=== PATIENT | female | born 1950 | race African-American/Black ===

== ENCOUNTER 2016-10-07 17:28 | Inpatient (IN) | payer MEDICARE ==
[~2016-10-07] VITALS: Ht 162.6 cm; Wt 57.1 kg
[~2016-10-07 17:28] MED LIST: ALPR0.5T3 PO; AMIT150T PO; GLUCTAB OR; LAMO100 PO; LURA40 OR; NAPR-576 PO; TERA1CAP3 PO
[2016-10-07 17:46] VITALS: BP 122/67; PULSE 112; RESP 20; TEMP 97.8; O2SAT 100
[2016-10-07] MEDS: HALOPERIDOL LACTATE 5 MG/ML AMP ONE ×2 (17:47→18:10)
[2016-10-07] MEDS: LORazepam 2 MG/ML VIAL ONE ×2 (17:48→18:03)
[2016-10-07] MEDS: diphenhydrAMINE HCL 50 MG/ML VIAL ONE ×2 (17:49→18:10)
[2016-10-07] MEDS ORDERED: METF500T PO (18:06)
[2016-10-07] MEDS ORDERED: diphenhydrAMINE HCL 50 MG/ML VIAL IV PUSH ONE (18:15)
[2016-10-07] MEDS ORDERED: HALOPERIDOL LACTATE 5 MG/ML AMP IM ONE (18:15)
[2016-10-07] MEDS ORDERED: LORazepam 2 MG/ML VIAL IV ONE (18:15)
[2016-10-07 18:41] LABS: AUTOMATED NEUTROPHIL # 3.3 TH/MM3 (1.8-7.7); BASOPHIL # 0.1 TH/MM3 (0-0.2); BASOPHIL % 0.8 % (0.0-2.0); EOSINOPHIL # 0.2 TH/MM3 (0-0.4); EOSINOPHIL % 2.5 % (0.0-4.0); HEMO FLAGS DIFF FINAL; LYMPH % 49.8 % (9.0-44.0); LYMPHOCYTE # 4.3 TH/MM3 (1.0-4.8); MEAN CELL VOLUME 85.5 FL (80.0-100.0); MEAN CORPUSCULAR HEMOGLOBIN 26.5 PG (27.0-34.0); MONO % 8.5 % (0.0-8.0); NEUT % 38.4 % (16.0-70.0); PLATELET COUNT 344 TH/MM3 (150-450); RED BLOOD COUNT 4.91 MIL/MM3 (4.00-5.30); RED CELL DISTRIBUTION WIDTH 15.5 % (11.6-17.2); WHITE BLOOD COUNT 8.6 TH/MM3 (4.0-11.0)
[2016-10-07] MEDS ORDERED: METF1000 PO (18:50)
[2016-10-07] MEDS ORDERED: TRAZ100T6 PO (18:50)
[2016-10-07 18:53] LABS: AMPHETAMINE, URINE NEG (NEG); BARBITURATES, URINE NEG (NEG); BLOOD, URINE NEG (NEG); COCAINE, URINE NEG (NEG); GLUCOSE,URINE NEG (NEG); KETONE, URINE NEG (NEG); MUCUS URINE FEW /lpf (OCC); NITRITE,URINE NEG (NEG); PH, URINE 5.5 (5.0-8.5); SQUAMOUS EPITHELIAL CELL URINE 1 /hpf (0-5); URINE COLOR YELLOW (YELLW/STRAW)
[2016-10-07] MEDS ORDERED: ALPR.5 PO (18:53)
[2016-10-07] MEDS ORDERED: AMIT150T PO (18:53)
[2016-10-07] MEDS ORDERED: DONE10TA7 PO (18:53)
[2016-10-07] MEDS ORDERED: RISP1 PO (18:53)
[2016-10-07] MEDS ORDERED: CARV3.125 PO (18:53)
[2016-10-07 18:55] LABS: COMMENT (UR) CATH-CULT NOT IND; CULTURE IF INDICATED CATH CULTURE NOT IND
[2016-10-07] MEDS ORDERED: FOLI1TAB6 PO (18:55)
[2016-10-07] MEDS ORDERED: ERGO1CAP30 PO (18:55)
--- NOTE | 2016-10-07 19:00 | PD ---
HPI Chief Complaint: Psychiatric Symptoms Time Seen by Provider: 17:57 Travel History International Travel<30 days: No Contact w/Intl Traveler<30days: No Traveled to known affect area: No History of Present Illness HPI This is a 66-year-old female with a history of seizure disorder, bipolar disorder, previous psychosis, presents here with acute psychosis. states that over last 2 days she's been extremely manic intermittently. He reports they were seen by their neurologist today who recommended that they go to her psychiatrist for management. Patient's states that she's been seen multiple times at [facility]. Previous records show that she's been admitted for acute psychosis. There is no reported ingestions of toxic substances. There is no report of injury. The states that she becomes violent and then becomes cooperative man becomes violent again. She'll be placed under Hodgson act by this physician. PFSH Past Medical History Asthma: Yes Blood Disorders: No Bipolar Disorder: Yes Cancer: No Cardiovascular Problems: Yes High Cholesterol: Yes Diabetes: Yes Patient Takes Glucophage: Yes Diminished Hearing: No Endocrine: No Gastrointestinal Disorders: Yes GERD: Yes Glaucoma: Yes Genitourinary: No Immune Disorder: No Musculoskeletal: Yes Neurologic: Yes Psychiatric: Yes (BIPOLAR ) Reproductive: No Respiratory: Yes Seizures: Yes Sickle Cell Disease: No Tetanus Vaccination: > 5 Years Influenza Vaccination: Yes ?: Not Tubal Ligation: Yes Past Surgical History Abdominal Surgery: No Cardiac Surgery: No Ear Surgery: No Endocrine Surgery: No Eye Surgery: No Genitourinary Surgery: No Gynecologic Surgery: Yes (FROM HISTORY- PATIENT UNABLE TO PROVIDE INFO) Oral Surgery: No Thoracic Surgery: No Other Surgery: Yes (TUBAL LIGATION 1984) Social History Alcohol Use: No Tobacco Use: No Substance Use: No Allergies-Medications (Allergen,Severity, Reaction): Coded Allergies: Penicillin (Verified Allergy, Intermediate, SWELLING, 10/07/16) Reported Meds & Prescriptions Reported Meds & Active Scripts Active Reported Folic Acid 1 Mg Tablet 1 Mg PO DAILY Ergocalciferol 50,000 Unit Cap 50,000 Units PO Q7D Donepezil 10 Mg Tab 10 Mg PO HS Coreg (Carvedilol) 3.125 Mg Tab 3.125 Mg PO BID Amitriptyline (Amitriptyline HCl) 150 Mg Tab 150 Mg PO HS Xanax (Alprazolam) 0.5 Mg Tab 0.5 Mg PO Q6H PRN Risperdal (Risperidone) 1 Mg Tab 1 Mg PO BID Metformin (Metformin HCl) 1,000 Mg Tab 1,000 Mg PO BIDPC With meals Review of Systems ROS Limitations: Psychotic (unable to obtain review of systems secondary to patient's psychosis.) Except as stated in HPI: all other systems reviewed are Neg Physical Exam Narrative GENERAL: Well developed well-nourished female who is acutely psychotic and aggressive towards staff. The patient was spitting at staff and required locked restraints. SKIN: Focused skin assessment warm/dry. HEAD: Atraumatic. Normocephalic. EYES: No scleral icterus. No injection or drainage. ENT: No nasal bleeding or discharge. Mucous membranes pink and moist. NECK: Trachea midline. No JVD. CARDIOVASCULAR: Tachycardic. No murmurs appreciated. RESPIRATORY: No accessory muscle use. Clear to auscultation. Breath sounds equal bilaterally. GASTROINTESTINAL: Abdomen soft, non-tender, nondistended. Hepatic and splenic margins not palpable. MUSCULOSKELETAL: No obvious deformities. No clubbing. No cyanosis. No edema. NEUROLOGICAL: Awake and psychotic. The patient was screaming and intermittently singing amazing [place].. No obvious cranial nerve deficits. Motor grossly within normal limits. Normal speech. PSYCHIATRIC: Acutely psychotic.. Data Data Last Documented VS Vital Signs Date Time Temp Pulse Resp B/P Pulse Ox O2 Delivery O2 Flow Rate FiO2 10/07/16 17:50 18 10/07/16 17:46 97.8 112 122/67 100 Orders Haloperidol Inj (Haldol Inj) (10/07/16 17:47) Lorazepam Inj (Ativan Inj) (10/07/16 17:48) Diphenhydramine Inj (Benadryl Inj) (10/07/16 17:49) Complete Blood Count With Diff (10/07/16 18:03) Comprehensive Metabolic Panel (10/07/16 18:03) Urinalysis - C+S If Indicated (10/07/16 18:03) Psych Screen (10/07/16 18:03) Haloperidol Inj (Haldol Inj) (10/07/16 18:15) Lorazepam Inj (Ativan Inj) (10/07/16 18:15) Drug Screen, Random Urine (10/07/16 18:03) Ct Brain W/O Iv Contrast(Rout) (10/07/16 18:03) Diphenhydramine Inj (Benadryl Inj) (10/07/16 18:15) Labs Laboratory Tests Test 10/07/16 10/07/16 18:11 18:30 White Blood Count 8.6 TH/MM3 Red Blood Count 4.91 MIL/MM3 Hemoglobin 13.0 GM/DL Hematocrit 42.0 % Mean Corpuscular Volume 85.5 FL Mean Corpuscular Hemoglobin 26.5 PG Mean Corpuscular Hemoglobin 31.0 % Concent Red Cell Distribution Width 15.5 % Platelet Count 344 TH/MM3 Mean Platelet Volume 8.6 FL Neutrophils (%) (Auto) 38.4 % Lymphocytes (%) (Auto) 49.8 % Monocytes (%) (Auto) 8.5 % Eosinophils (%) (Auto) 2.5 % Basophils (%) (Auto) 0.8 % Neutrophils # (Auto) 3.3 TH/MM3 Lymphocytes # (Auto) 4.3 TH/MM3 Monocytes # (Auto) 0.7 TH/MM3 Eosinophils # (Auto) 0.2 TH/MM3 Basophils # (Auto) 0.1 TH/MM3 CBC Comment DIFF FINAL Differential Comment Urine Color YELLOW Urine Turbidity CLEAR Urine pH 5.5 Urine Specific [place] 1.013 Urine Protein NEG mg/dL Urine Glucose (UA) NEG mg/dL Urine Ketones NEG mg/dL Urine Occult Blood NEG Urine Nitrite NEG Urine Bilirubin NEG Urine Urobilinogen LESS THAN 2.0 MG/DL Urine Leukocyte Esterase TRACE Urine RBC LESS THAN 1 /hpf Urine WBC LESS THAN 1 /hpf Urine Squamous Epithelial 1 /hpf Cells Urine Mucus FEW /lpf Microscopic Urinalysis Comment CATH-CULT NOT IND MDM Medical Decision Making Medical Screen Exam Complete: Yes Emergency Medical Condition: Yes Differential Diagnosis Acute manic episode versus psychosis NOS versus substance induced mood disorder versus metabolic derangement. Narrative Course 66-year-old female who presents acutely psychotic. The patient has a history of bipolar disorder. She's been admitted previously for psychosis. CT scan is pending at this time. Metabolic work up is pending at this time. She'll be placed on a Hodgson act by this physician. If all is within normal limits, she' ll be cleared for psychiatric admission. She'll be signed out to Dr. Smith Sanchez cool follow up on her labs and CT and if appropriate clear her for psychiatry. Diagnosis Primary Impression: Acute psychosis Additional Impressions: History of bipolar disorder History of seizure disorder Julius Guerrero MD Oct 07, 2016 19:00
[2016-10-07 19:01] VITALS: BP 99/56; PULSE 82; RESP 16; O2SAT 95
[2016-10-07 19:03] LABS: ALKALINE PHOSPHATASE 111 U/L (45-117); TOTAL BILIRUBIN ADULT 0.4 MG/DL (0.2-1.0)
[2016-10-07 19:05] LABS: ALT (GPT) 28 U/L (10-53); ANION GAP 12 MEQ/L (5-15); AST (GOT) 30 U/L (15-37); BLOOD UREA NITROGEN 6 MG/DL (7-18); CHLORIDE 105 MEQ/L (98-107); GLOMERULAR FILTRATION RATE 64 ML/MIN (>89); POTASSIUM 4.4 MEQ/L (3.5-5.1); SODIUM (NA) 141 MEQ/L (136-145)
--- NOTE | 2016-10-07 19:23 | RADRPT ---
EXAM DATE/TIME: 10/07/2016 18:45 [place] COMPARISON: No previous studies available for comparison. INDICATIONS : Altered mental status. RADIATION DOSE: 56.80 CTDIvol (mGy) MEDICAL HISTORY : Seizures. Cardiovascular disease SURGICAL HISTORY : Tubal ligation. ENCOUNTER: Initial ACUITY: 1 day PAIN SCALE: 0/10 LOCATION: cranial TECHNIQUE: Multiple contiguous axial images were obtained of the head. Using automated exposure control and adj ustment of the mA and/or kV according to patient size, radiation dose was kept as low as reasonably a chievable to obtain optimal diagnostic quality images. FINDINGS: CEREBRUM: The ventricles are normal. No evidence of midline shift, mass lesion, hemorrhage or acute infarction . No extra-axial fluid collections are seen. POSTERIOR FOSSA: The cerebellum and brainstem demonstrate no acute finding. The 4th ventricle is midline. The cerebe llopontine angle is unremarkable. EXTRACRANIAL: Visualized sinuses are clear. SKULL: The calvaria is intact. No evidence of skull fracture. CONCLUSION: No acute intracranial abnormality is identified. Ric Figueredo MD on October 07, 2016 at 19:14 Board Certified Radiologist. This report was verified electronically.
--- NOTE | 2016-10-07 20:08 | PD ---
Data Data Last Documented VS Vital Signs Date Time Temp Pulse Resp B/P Pulse Ox O2 Delivery O2 Flow Rate FiO2 10/07/16 19:01 82 16 99/56 95 Room Air 10/07/16 17:46 97.8 Orders Haloperidol Inj (Haldol Inj) (10/07/16 17:47) Lorazepam Inj (Ativan Inj) (10/07/16 17:48) Diphenhydramine Inj (Benadryl Inj) (10/07/16 17:49) Complete Blood Count With Diff (10/07/16 18:03) Comprehensive Metabolic Panel (10/07/16 18:03) Urinalysis - C+S If Indicated (10/07/16 18:03) Psych Screen (10/07/16 18:03) Haloperidol Inj (Haldol Inj) (10/07/16 18:15) Lorazepam Inj (Ativan Inj) (10/07/16 18:15) Drug Screen, Random Urine (10/07/16 18:03) Ct Brain W/O Iv Contrast(Rout) (10/07/16 18:03) Diphenhydramine Inj (Benadryl Inj) (10/07/16 18:15) Cath For Specimen (10/07/16 18:54) Restraints Violent (10/07/16 18:54) Labs Laboratory Tests Test 10/07/16 10/07/16 18:11 18:30 White Blood Count 8.6 TH/MM3 Red Blood Count 4.91 MIL/MM3 Hemoglobin 13.0 GM/DL Hematocrit 42.0 % Mean Corpuscular Volume 85.5 FL Mean Corpuscular Hemoglobin 26.5 PG Mean Corpuscular Hemoglobin 31.0 % Concent Red Cell Distribution Width 15.5 % Platelet Count 344 TH/MM3 Mean Platelet Volume 8.6 FL Neutrophils (%) (Auto) 38.4 % Lymphocytes (%) (Auto) 49.8 % Monocytes (%) (Auto) 8.5 % Eosinophils (%) (Auto) 2.5 % Basophils (%) (Auto) 0.8 % Neutrophils # (Auto) 3.3 TH/MM3 Lymphocytes # (Auto) 4.3 TH/MM3 Monocytes # (Auto) 0.7 TH/MM3 Eosinophils # (Auto) 0.2 TH/MM3 Basophils # (Auto) 0.1 TH/MM3 CBC Comment DIFF FINAL Differential Comment Sodium Level 141 MEQ/L Potassium Level 4.4 MEQ/L Chloride Level 105 MEQ/L Carbon Dioxide Level 24.0 MEQ/L Anion Gap 12 MEQ/L Blood Urea Nitrogen 6 MG/DL Creatinine 1.05 MG/DL Estimat Glomerular Filtration 64 ML/MIN Rate Random Glucose 145 MG/DL Calcium Level 9.4 MG/DL Total Bilirubin 0.4 MG/DL Aspartate Amino Transf 30 U/L (AST/SGOT) Alanine Aminotransferase 28 U/L (ALT/SGPT) Alkaline Phosphatase 111 U/L Total Protein 8.7 GM/DL Albumin 4.2 GM/DL Urine Color YELLOW Urine Turbidity CLEAR Urine pH 5.5 Urine Specific [place] 1.013 Urine Protein NEG mg/dL Urine Glucose (UA) NEG mg/dL Urine Ketones NEG mg/dL Urine Occult Blood NEG Urine Nitrite NEG Urine Bilirubin NEG Urine Urobilinogen LESS THAN 2.0 MG/DL Urine Leukocyte Esterase TRACE Urine RBC LESS THAN 1 /hpf Urine WBC LESS THAN 1 /hpf Urine Squamous Epithelial 1 /hpf Cells Urine Mucus FEW /lpf Microscopic Urinalysis Comment CATH-CULT NOT IND Urine Opiates Screen NEG Urine Barbiturates Screen NEG Urine Amphetamines Screen NEG Urine Benzodiazepines Screen POS Urine Cocaine Screen NEG Urine Cannabinoids Screen NEG MDM Supervised Visit with [facility]: No Narrative Course This patient is checked out to me by Dr. Guerrero at 7 PM. Patient came in acutely psychotic but with some time in medication is calm down considerably and is now resting comfortable and cooperatively in the bed She is out of restraints I reviewed the entirety of her workup which essentially is negative. She has normal labs and a negative brain CT She is as medically stable as can be made and as she is under the Hodgson act disposition will be per psychiatry after screening Diagnosis Primary Impression: Acute psychosis Additional Impressions: History of bipolar disorder History of seizure disorder Smith Núñez MD Oct 07, 2016 20:08
[2016-10-07 20:44] VITALS: BP 138/74; PULSE 80; RESP 18; O2SAT 91
[2016-10-07 22:00] VITALS: BP 112/53; PULSE 84; RESP 19; O2SAT 99
[2016-10-08 02:00] VITALS: BP 146/68; PULSE 93; RESP 19; O2SAT 98
[2016-10-08 06:20] VITALS: BP 165/74; PULSE 85; RESP 18; O2SAT 99
[2016-10-08] MEDS ORDERED: IBUPROFEN 400 MG TAB PO ONE (07:30)
[2016-10-08 11:18] VITALS: BP 130/61; PULSE 78; RESP 16; O2SAT 99
[2016-10-08] MEDS ORDERED: IBUPROFEN 600 MG TAB PO ONE (14:30)
[2016-10-08] MEDS ORDERED: LORazepam 2 MG/ML VIAL ONE (17:48)
[2016-10-08] MEDS ORDERED: LORazepam 1 MG TAB PO PRN (18:00)
[2016-10-08] MEDS ORDERED: diphenhydrAMINE HCL 50 MG/ML VIAL - HS PRN IM (18:00)
[2016-10-08] MEDS ORDERED: BENZTROPINE MESYLATE 2 MG/2 ML VIAL IM PRN (18:00)
[2016-10-08] MEDS: CARVEDILOL 3.125 MG TAB PO SCH (18:00)
[2016-10-08] MEDS ORDERED: ACETAMINOPHEN 325 MG TAB PO PRN (18:00)
[2016-10-08] MEDS ORDERED: diphenhydrAMINE HCL 50 MG CAP - HS PRN PO (18:00)
[2016-10-08] MEDS ORDERED: ALUMINUM/MAGNESIUM/SIMETH 30 ML CUP PO PRN (18:00)
[2016-10-08] MEDS ORDERED: LORazepam 2 MG/ML VIAL IM PRN (18:00)
[2016-10-08] MEDS ORDERED: BENZTROPINE MESYLATE 1 MG TAB PO PRN (18:00)
[2016-10-08] MEDS ORDERED: ALPRAZolam 0.5 MG TAB PO PRN (18:00)
[2016-10-08] MEDS ORDERED: MAGNESIUM HYDROXIDE SUSP 30 ML CUP PO PRN (18:00)
[2016-10-08] MEDS ORDERED: PILL SPLITTER OTHER PRN (18:15)
[2016-10-08] MEDS ORDERED: diphenhydrAMINE HCL 50 MG/ML VIAL IM ONE (19:15)
[2016-10-08] MEDS ORDERED: HALOPERIDOL LACTATE 5 MG/ML AMP IM ONE (19:15)
[2016-10-08 20:46] VITALS: BP 180/84; PULSE 80; RESP 18
[2016-10-08] MEDS: QUEtiapine FUMARATE 100 MG TAB PO SCH (21:00)
[2016-10-08] MEDS ORDERED: DONEPEZIL HCL 5 MG TAB PO SCH (21:00)
[2016-10-08] MEDS: risperiDONE 1 MG TAB PO SCH (21:00)
[2016-10-08] MEDS: metFORMIN HCL 500 MG TAB PO SCH (21:00)
[2016-10-08] MEDS ORDERED: hydrALAZINE HCL 25 MG TAB PO ONE (21:30)
[2016-10-08 22:00] VITALS: BP 116/88; PULSE 116; RESP 18; O2SAT 99
[2016-10-09 02:50] VITALS: BP 102/58; PULSE 118; RESP 16; TEMP 97.6; O2SAT 98
[2016-10-09 05:30] VITALS: BP_SYST 52; PULSE 99; RESP 16; TEMP 96.9; O2SAT 98
[2016-10-09] MEDS: CARVEDILOL 3.125 MG TAB PO SCH ×2 (06:00→06:26)
[2016-10-09] MEDS: risperiDONE 1 MG TAB PO SCH (09:00)
[2016-10-09] MEDS ORDERED: FOLIC ACID 1 MG TAB PO SCH (09:00)
[2016-10-09] MEDS: QUEtiapine FUMARATE 100 MG TAB PO SCH (09:00)
[2016-10-09] MEDS: metFORMIN HCL 500 MG TAB PO SCH (09:10)
--- NOTE | 2016-10-09 13:18 | PD.PN.STU ---
Subjective Remarks Patient is a 66 year old AA female on disability living with her and adult daughter with a history of bipolar disorder, seizures, and psychosis who presents to the clinic from the ED. Patient arrived at the ED last night with acute psychosis lasting for several hours prior to arrival. patient reports difficulty with organizing her medications which has lead to the inability to take them consistently and correctly, causing this psychotic event. She reports these events occur once every 2-3 months. When on medication, patient reports being stable and functional. She does not remember exactly what medications she is on. Patient denies any current psychotic symptoms, but does report feeling "groggy" and tired. Patient denies any suicidal or homicidal ideation or attempts, past or present Patient reports additional medical history of hypertension and diabetes. Patient denies any alcohol, tobacco, or recreational drug use. Objective Vitals Vital Signs Date Time Temp Pulse Resp B/P Pulse Ox O2 Delivery O2 Flow Rate FiO2 10/09/16 05:30 96.9 99 16 52/ 98 10/09/16 02:50 97.6 118 16 102/58 98 10/08/16 22:00 116 18 116/88 99 Room Air 10/08/16 20:46 80 18 180/84 Room Air Result Diagram: 10/07/16 1811 10/07/16 1811 Objective Remarks Patient is a well nourished well developed pleasant female who appears her stated age. patient is calm and cooperative. Speech is of normal rate and contact. Affect is of normal range and intensity. Thought process is clear, linear, and goal-orientated. Thought content, cognition, insight, and judgement are appropiate. A/P Assessment and Plan 1) Brief Psychotic Disorder 2) Bipolar disorder with psychosis - chronic Patient is a 66 year old female with history of bipolar disorder presenting today with brief psychotic disorder. She currently denies any symptoms of psychosis and expresses understanding of the importance of her medication's effect on her psychosis. She expresses desire to seek help in organizing her many anti-psychotic medications. She lives in a stable home with supportive family and has been living with this disease for over 20 years. I believe patient is in a stable enough state for discharge on conditions that she immediately seeks outpatient help in organizing her medications. Chet Conklin M3 Oct 09, 2016 13:18
--- NOTE | 2016-10-09 14:06 | HHI.HP ---
Provisional Diagnosis Admission Date Oct 08, 2016 at 16:48 [place] I. Brief psychotic disorder F 23, history of bipolar disorder Z 86.59 Certification of Person's Competence To Provide Express and Informed Consent I have personally examined Denise Hurley , a person being served at [facility] on, Oct 09, 2016 13:56. Express and informed consent means consent voluntarily given in writing, by a competent person, after sufficient explanation and disclosure of the subject matter involved to enable the person to make a knowing and willful decision without any element of force, fraud, deceit, duress, or other form of constraint or coercion. This person is 18 years of age or older, is not now known to be incompetent to consent to treatment with a guardian advocate, and does not have a health care surrogate or proxy currently making medical treatment decisions. I have found this person to be one of the following: [xx] Competent to provide express and informed consent, as defined above, for voluntary admission to this facility and is competent to provide express and informed consent for treatment. He/she has the consistent capacity to make well reasoned, willful, and knowing decisions concerning his or her medical or mental health treatment. The person fully and consistently understands the purpose of the admission for examination/placement and is fully capable of personally exercising all rights assured [place] Incompetent to provide express and informed consent to voluntary admission, and this is incompetent to provide express and informed consent to treatment. The person must be transferred to involuntary status and a petition for a guardian advocate filed with the Circuit Court. [] Refusing to provide express and informed consent to voluntary admission but is competent to provide express and informed consent for treatment. The person must be discharged or transferred to involuntary status. Form shall be completed within 24 hours of a person's arrival at the receiving facility and filed in the clinical record of each person: 1. Admitted on a voluntary basis 2. Permitted to provide express and informed consent to his/her own treatment 3. Allowed to transfer from involuntary to voluntary status 4. Prior to permitting a person to consent to his or her own treatment after having been previously found incompetent to consent to treatment. History of Present Illness Capacity: Has Capacity HPI Patient is a 66-year-old Af[place]er female comes here under Hodgson act signed by Dr. Julius Guerrero [facility] dated 10/07/16 at 1900 hrs. that documented reviewed and agreed with essentially stating actively psychotic with aggressive behavior to family and staff. Patient seen screened in ED urine toxicology positive for benzodiazepines which is being prescribed. It appears patient has a long history of mental health contact and various medications. At the present time she states she is seeing 2 different clinicians did not take nurse practitioner at [facility] and Dr. Brian cosme local psychiatrist. This is led to some confusion with her and daughter as to the appropriate medications. Leading to the patient showing the psychotic break she acknowledges auditory hallucinations and vague visual hallucinations. Stating she had seen faces on the TV being distorted. She did receive Haldol Ativan and Benadryl in the ED. At the present time patient sitting quietly in her room medical student Guicho and nurse Lizz present throughout session patient calm cooperative alert and oriented. Now denying voices or visions denying suicidality homicidality. Does acknowledge some multiple year history of issues with multiple prior psychiatric hospitalizations. She denies any alcohol or drug use with this. We did discuss the need to live up relationship with one prescribing psychiatrist. To prevent the type of confusion perhaps duplication of medications in any event at the present time patient is calm cooperative willing to follow up with one clinician. It appears she would choose Dr. Brian cosme. I will write 1 week medications that I recommend to bridge this transition including Respinol 1 mg twice a day Xanax 0.5 at at bedtime and Elavil 75 mg at at bedtime with no refills patient is agreeable to this. We will then discharge patient to her family for follow-up within [address] cosme Review of Systems Except as stated in HPI: all other systems reviewed are Neg Past Psych History Psychological trauma history Denies Violence risk - others (6 mos) Low Violence risk - self (6 mos) Low Substance Abuse History Drugs/Alcohol past 12 months Denies Past Family Social History Coded Allergies: Penicillin (Verified Allergy, Intermediate, SWELLING, 10/07/16) Past Medical History Patient medically cleared ED Reported Medications Folic Acid 1 Mg Tablet1 Mg PO DAILY 10/07/16 Ergocalciferol 50,000 Unit Cap50,000 Units PO Q7D #30 CAP Ref 0 10/07/16 Donepezil 10 Mg Tab10 Mg PO HS #30 TAB Ref 0 10/07/16 Carvedilol (Coreg)3.125 Mg Tab3.125 Mg PO BID #60 TAB Ref 0 10/07/16 Amitriptyline 150 Mg [id number] Mg PO HS #30 TAB Ref 0 10/07/16 Alprazolam (Xanax)0.5 Mg Tab0.5 Mg PO Q6H PRN (ANXIETY) Ref 0 10/07/16 Risperidone (Risperdal)1 Mg Tab1 Mg PO BID #30 TAB Ref 0 10/07/16 Metformin 1,000 Mg Tab1,000 Mg PO BIDPC #60 TAB Ref 0 With meals 10/07/16 Discontinued Reported Medications Metformin 500 Mg [id number] Mg PO BIDPC #60 TAB Ref 0 With meals 10/07/16 Current Medications Medications (Trade) Dose Ordered Sig/Tim Route Start Time Stop Time Status Last Admin (Glucophage) 1,000 mg BID PO 10/08/16 21:00 10/09/16 09:10 (risperDAL) 1 mg BID PO 10/08/16 21:00 10/08/16 21:00 (Xanax) 0.5 mg Q6H PRN PO 10/08/16 18:00 (Coreg) 3.125 mg Q12H PO 10/08/16 18:00 10/08/16 18:00 (Aricept) 10 mg HS PO 10/08/16 21:00 10/08/16 21:00 (Folate) 1 mg DAILY PO 10/09/16 09:00 10/09/16 09:10 (Ativan) 1 mg Q6H PRN PO 10/08/16 18:00 (Ativan Inj) 1 mg Q6H PRN IM 10/08/16 18:00 10/09/16 00:11 (Cogentin) 1 mg Q12H PRN PO 10/08/16 18:00 (Cogentin Inj) 1 mg Q12H PRN IM 10/08/16 18:00 (Benadryl) 50 mg HS PRN PO 10/08/16 18:00 (Benadryl Inj) 50 mg HS PRN IM 10/08/16 18:00 (Tylenol) 650 mg Q4H PRN PO 10/08/16 18:00 (Milk Of Magnesia Liq) 30 ml DAILY PRN PO 6/22/17 18:00 (Mag-Al Plus Susp Liq) 30 ml Q6H PRN PO 10/08/16 18:00 (SEROquel) 150 mg BID PO 10/08/16 21:00 10/08/16 21:00 (Pill Splitter) 1 ea UNSCH PRN OTHER 10/08/16 18:15 Family History Denies Social History Patient lives with and adult daughter who is moved back and help care for Patient's Strengths (min. 2) Patient verbal irritable [facility] has supportive family Physical Exam Patient seen screened in ED exam reviewed and agreed with patient sitting quietly in her room no apparent distress, there is no respiratory distress, no abdominal discomfort, patient will 4 extremities without difficulty no abnormal motor movements noted Vital Signs Vital Signs Date Time Temp Pulse Resp B/P Pulse Ox O2 Delivery O2 Flow Rate FiO2 10/09/16 05:30 96.9 99 16 52/ 98 10/08/16 22:00 Room Air Mental Status Examination Alert oriented female calm cooperative with good eye contact clean and neat Appearance Clean neatly Speech: Unremarkable Orientation: x3 Memory: Unremarkable Thought Process: Logical, Linear Thought Content: Bizarre thinking (mildly) Language Fair Fund of Knowledge Fair Hallucination Type: Auditory, Visual (vague) Attention and Concentration: Other (fair) Suicidal Ideation: No (denies) Previous Suicide Attempts: No Homicidal Ideation: No (denies) Insight: Poor Judgment: Poor Affect: Other (good range of motion intensity) Mood: Euthymic Motor Activity: Normal gait Assessment & Plan Problem List: (1) Acute psychosis ICD Code: F23 (2) History of bipolar disorder ICD Code: Z86.59 Assessment & Plan Estimated LOS: days consistent patient does not meet Hodgson criteria will lift Hodgson act patient to be discharged herself with a one-week supply of medication mentioned above follow-up within [address] Brian cosme Discharge Planning See above Request HC Surrog/Guard Advoc?: No Ric Anna MD Oct 09, 2016 14:06
[2016-10-09] MEDS ORDERED: RISP1 PO (14:11)
[2016-10-09] MEDS ORDERED: ALPR.5 PO (14:11)
[2016-10-09] MEDS ORDERED: AMIT75TA2 PO (14:11)
--- NOTE | 2016-10-09 14:17 | HHI.DS ---
Psychiatry Discharge Summary Inpatient Psychiatric care?: Yes Advance Directive: No Reason Not Provided: Due to Patient Condition Mental Health AdvanceDirective: No Health Care Proxy: No Admission Admission Date Oct 08, 2016 at 16:48 Admission Diagnosis: (1) Acute psychosis ICD Code: F23 (2) History of bipolar disorder ICD Code: Z86.59 Brief History Patient is a 66-year-old Afro-Malagasy female comes here under Hodgson act signed by Dr. Julius Guerrero [employer] dated 10/07/16 at 1900 hrs. that documented reviewed and agreed with essentially stating actively psychotic with aggressive behavior to family and staff. Patient seen screened in ED urine toxicology positive for benzodiazepines which is being prescribed. It appears patient has a long history of mental health contact and various medications. At the present time she states she is seeing 2 different clinicians did not take nurse practitioner at [facility] and Dr. Brian cosme local psychiatrist. This is led to some confusion with her and daughter as to the appropriate medications. Leading to the patient showing the psychotic break she acknowledges auditory hallucinations and vague visual hallucinations. Stating she had seen faces on the TV being distorted. She did receive Haldol Ativan and Benadryl in the ED. At the present time patient sitting quietly in her room medical student Guicho and nurse Lizz present throughout session patient calm cooperative alert and oriented. Now denying voices or visions denying suicidality homicidality. Does acknowledge some multiple year history of issues with multiple prior psychiatric hospitalizations. She denies any alcohol or drug use with this. We did discuss the need to live up relationship with one prescribing psychiatrist. To prevent the type of confusion perhaps duplication of medications in any event at the present time patient is calm cooperative willing to follow up with one clinician. It appears she would choose Dr. Brian cosme. I will write 1 week medications that I recommend to bridge this transition including Respinol 1 mg twice a day Xanax 0.5 at at bedtime and Elavil 75 mg at at bedtime with no refills patient is agreeable to this. We will then discharge patient to her family for follow-up within [address] cosme Tobacco Use In Past 30 Days: No Tobacco Past 30 Days Alcohol Use: Monthly or Less Hospital Course Please see above note dictated under brief history. Patient does not meet Hodgson criteria will lift Hodgson act. Patient discharged today to family with Rx as mentioned above. To follow up with Dr. Brian cosme within 1 week. Patient continues to denies suicidality homicidality voices or visions is little oriented 4 cognitively intact Results Blood Pressure 52 / 58 Vital Signs Date Time Temp Pulse Resp B/P Pulse Ox O2 Delivery O2 Flow Rate FiO2 10/09/16 05:30 96.9 99 16 52/ 98 10/08/16 22:00 Room Air Laboratory Tests Test 10/07/16 10/07/16 18:11 18:30 Mean Corpuscular Hemoglobin 26.5 PG (27.0-34.0) Mean Corpuscular Hemoglobin 31.0 % Concent (32.0-36.0) Lymphocytes (%) (Auto) 49.8 % (9.0-44.0) Monocytes (%) (Auto) 8.5 % (0.0-8.0) Blood Urea Nitrogen 6 MG/DL (7-18) Creatinine 1.05 MG/DL (0.50-1.00) Estimat Glomerular Filtration 64 ML/MIN (>89) Rate Random Glucose 145 MG/DL (74-106) Total Protein 8.7 GM/DL (6.4-8.2) Urine Leukocyte Esterase TRACE (NEG) Urine Mucus FEW /lpf (OCC) Urine Benzodiazepines Screen POS (NEG) Summary of Procedures None done Imaging Last Impressions Head CT 10/07/16 180 Signed Impressions: Service Date/Time: Friday, October 07, 2016 18:45 - CONCLUSION: No acute intracranial abnormality is identified. Ric Figueredo MD Pending results at discharge: No Medications # of Antipsychotic meds at D/C: 1 Approp Antipsych med options 1 - Minimum of three failed multiple trials of monotherapy. 2 - Documented plan to taper to monotherapy due to previous use of multiple meds OR cross-taper in progress at D/C. 3 - Documentation of augmentation of Clozapine. 4 - Justification other than those listed in allowable values 1-3, document here : Discharge Discharge Date: Oct 09, 2016 Discharge Diagnosis: (1) Acute psychosis Diagnosis: Principal ICD Code: F23 (2) History of bipolar disorder Diagnosis: Secondary ICD Code: Z86.59 Mental Status Exam at Disch Alert oriented female calm cooperative, she is normal active, mood is euthymic good range intensity of her affect. Speech rate and rhythm within a normal limits, no formal thought disorders, no auditory or visual hallucinations no delusions noted insight and judgment is fair cognition grossly intact Pt Condition on Discharge: Stable Discharge Disposition: Discharge Home Discharge Instructions Diet Instructions: As Tolerated, No Restrictions Activities you can perform: Regular-No Restrictions Scheduled Appointment: Dr. Brian cosme Discharge Time > 30 minutes Discharge/Advance Care Plan Health Problems: (1) Acute psychosis (2) History of bipolar disorder Goals to promote your health * To prevent worsening of your condition and complications * To maintain your health at the optimal level Directions to meet your goals Take your medications as prescribed Follow your dietary instruction Follow activity as directed Keep your appointments as scheduled Take your immunizations and boosters as scheduled If your symptoms worsen call your PCP, if no PCP go to Urgent Care Center or Emergency Room For 09/11 questions related to your inpatient stay or results of tests pending at discharge, please contact Dr. Ric Anna at Smoking is Dangerous to Your Health. Avoid second hand smoking Ric Anna MD Oct 09, 2016 14:17
[2016-10-09] MEDS ORDERED: ACETAMINOPHEN 325 MG TAB PO PRN (15:00)
== END 2016-10-09 15:30 | disposition home or self-care (01) | DRG 885 ==
LOC: NEPC 17:28 → NEDA 10-08 16:48 → H260 10-09 01:50
PROVIDERS: ADMIT Psychiatry & Neurology Psychiatry; ATTEND Psychiatry & Neurology Psychiatry
DX: F23 Brief psychotic disorder (principal); E11.9 Type 2 diabetes mellitus without complications; I10 Essential (primary) hypertension; H40.9 Unspecified glaucoma; J45.909 Unspecified asthma, uncomplicated; Z88.0 Allergy status to penicillin; K21.9 Gastro-esophageal reflux disease without esophagitis; Z79.84 Long term (current) use of oral hypoglycemic drugs; E78.00 Pure hypercholesterolemia, unspecified; Z86.59 Personal history of other mental and behavioral disorders
CPT/HCPCS: 70450; 80053; 80307; 81001; 85025; 96372; 96374; 96375; J1200; J1630; J2060; P9612

== ENCOUNTER 2017-07-26 10:41 | Inpatient (IN) | payer MEDICARE ==
[2017-07-26] VITALS (8 sets, daily range): BP systolic 114–168; BP diastolic 60–130; PULSE 82–145; RESP 16–20; TEMP 98–100.9; O2SAT 98–100
[~2017-07-26] VITALS: Ht 167.6 cm; Wt 69.4 kg
[~2017-07-26 10:41] MED LIST changes: +ALPR.5 PO; -ALPR0.5T3 PO; +AMIT75TA2 PO; +CARV3.125 PO; +DONE10TA7 PO; +FOLI1TAB6 PO; -GLUCTAB OR; -LAMO100 PO; -LURA40 OR; +METF1000 PO; -NAPR-576 PO; +RISP1 PO; -TERA1CAP3 PO; +VITA500012 PO
[2017-07-26] MEDS ORDERED: SODIUM CHLOR 0.9% 1000 ML INJ 1,000 ML IV SCH ×2 (11:04→12:28)
--- NOTE | 2017-07-26 11:12 | PD ---
HPI Chief Complaint: Altered Mental Status Time Seen by Provider: 11:00 Travel History International Travel<30 days: No Contact w/Intl Traveler<30days: No Traveled to known affect area: No History of Present Illness HPI This is a 67-year-old female who, per chart review, has a history of bipolar disorder diabetes, presents via EMS reportedly for altered mental status. Baseline mental status is unknown. Duration of acute symptoms is unknown. The patient is currently awake and alert but agitated and combative, requiring the use of chemical and physical restraints. At one point she asked where her daughter was. Otherwise she has been nonverbal during initial evaluation. The nurse was told by paramedics that at some point recently she had her Risperdal dosage changed and she has been incontinent of urine for an unknown amount of time.. No other additional information is available at this time. Per chart review she was hospitalized in September 2016 for brief psychotic disorder. PFSH Past Medical History Arthritis: No Asthma: Yes Blood Disorders: No Bipolar Disorder: Yes Cancer: No Cardiovascular Problems: Yes High Cholesterol: Yes Diabetes: Yes Diminished Hearing: No Endocrine: No Gastrointestinal Disorders: Yes GERD: Yes Glaucoma: Yes Genitourinary: No Immune Disorder: No Musculoskeletal: Yes Neurologic: Yes Psychiatric: Yes (BIPOLAR ) Reproductive: No Respiratory: Yes Seizures: Yes Sickle Cell Disease: No Tubal Ligation: Yes Past Surgical History Abdominal Surgery: No Cardiac Surgery: No Ear Surgery: No Endocrine Surgery: No Eye Surgery: No Genitourinary Surgery: No Gynecologic Surgery: Yes (FROM HISTORY- PATIENT UNABLE TO PROVIDE INFO) Oral Surgery: No Thoracic Surgery: No Other Surgery: Yes (TUBAL LIGATION 1984) Social History Alcohol Use: No Tobacco Use: No Substance Use: No Allergies-Medications (Allergen,Severity, Reaction): Coded Allergies: penicillin G (Unverified Allergy, Intermediate, SWELLING, 07/26/17) Reported Meds & Prescriptions Reported Meds & Active Scripts Active Reported Naproxen 500 Mg Tab 500 Mg PO BID PRN Atorvastatin (Atorvastatin Calcium) 80 Mg Tab 80 Mg PO HS Amitriptyline (Amitriptyline HCl) 100 Mg Tab 100 Mg PO HS Xanax (Alprazolam) 1 Mg Tab 1 Mg PO DAILY PRN Folic Acid 1 Mg Tablet 1 Mg PO DAILY Ergocalciferol 50,000 Unit Cap 50,000 Units PO Q7D Donepezil 10 Mg Tab 10 Mg PO HS Coreg (Carvedilol) 3.125 Mg Tab 3.125 Mg PO BID Risperdal (Risperidone) 1 Mg Tab 1 Mg PO BID Metformin (Metformin HCl) 1,000 Mg Tab 1,000 Mg PO BIDPC With meals Review of Systems ROS Limitations: Altered Mental Status Except as stated in HPI: all other systems reviewed are Neg Physical Exam Exam Limitations: Altered Mental Status Narrative GENERAL: Well-developed well-nourished female who is awake but unable to follow commands or answer questions in regards to history of present illness. She is tachycardic. SKIN: Warm and dry. HEAD: Atraumatic. Normocephalic. EYES: Pupils equal and round. No scleral icterus. No injection or drainage. ENT: No nasal bleeding or discharge. Mucous membranes pink and moist. NECK: Trachea midline. No JVD. CARDIOVASCULAR: Regular rate and rhythm. No murmur appreciated. RESPIRATORY: No accessory muscle use. Clear to auscultation. Breath sounds equal bilaterally. GASTROINTESTINAL: Abdomen soft, non-tender, nondistended. Hepatic and splenic margins not palpable. MUSCULOSKELETAL: No obvious deformities. No clubbing. No cyanosis. No edema. NEUROLOGICAL: Awake and alert. No obvious cranial nerve deficits. Motor grossly within normal limits. Data Data Last Documented VS Vital Signs Date Time Temp Pulse Resp B/P (MAP) Pulse Ox O2 Delivery O2 Flow Rate FiO2 07/26/17 12:46 105 20 131/74 (93) 99 Room Air 07/26/17 11:00 100.9 Orders Orders Electrocardiogram (07/26/17 11:04) Ammonia (07/26/17 11:04) Complete Blood Count With Diff (07/26/17 11:04) Comprehensive Metabolic Panel (07/26/17 11:04) Creatine Kinase (Cpk) (07/26/17 11:04) Thyroid Stimulating Hormone (07/26/17 11:04) Urinalysis - C+S If Indicated (07/26/17 11:04) Lactic Acid Sepsis Protocol (07/26/17 11:04) Blood Culture (07/26/17 11:04) Chest, Single Ap (07/26/17 11:04) Ct Brain W/O Iv Contrast(Rout) (07/26/17 11:04) Blood Glucose (07/26/17 11:04) Ecg Monitoring (07/26/17 11:04) Iv Access Insert/Monitor (07/26/17 11:04) Oximetry (07/26/17 11:04) Sodium Chloride 0.9% Flush (Ns Flush) (07/26/17 11:15) Sodium Chlor 0.9% 1000 Ml Inj (Ns 1000 M (07/26/17 11:04) Drug Screen, Random Urine (07/26/17 11:04) Alcohol (Ethanol) (07/26/17 11:04) Cath For Specimen (07/26/17 11:05) Lorazepam Inj (Ativan Inj) (07/26/17 11:15) Restraints Non-Violent EMILIANO.Q3H (07/26/17 11:09) CKMB (07/26/17 11:22) CKMB% (07/26/17 11:22) Sodium Chlor 0.9% 1000 Ml Inj (Ns 1000 M (07/26/17 12:28) Cefepime Inj (Maxipime Inj) (07/26/17 13:15) Vancomycin Inj (Vancomycin Inj) (07/26/17 13:15) Lactic Acid Sepsis Protocol (07/26/17 13:17) Admit To Inpatient (07/26/17 ) Code Status (07/26/17 13:15) Vital Signs (Adult) Q4H (07/26/17 13:15) Activity Oob With Assistance (07/26/17 13:15) Neuro Checks Q4H (07/26/17 13:15) Clothes Marker / Telemetry EMILIANO.Q8H (07/26/17 13:15) Diet Heart Healthy (07/26/17 Lunch) Sodium Chloride 0.9% Flush (Ns Flush) (07/26/17 13:15) Sodium Chloride 0.9% Flush (Ns Flush) (07/26/17 21:00) Lorazepam (Ativan) (07/26/17 13:15) Complete Blood Count With Diff (07/27/17 06:00) Basic Metabolic Panel (Bmp) (07/27/17 06:00) Hepatic Functional Panel (07/26/17 13:15) Lactic Acid (07/26/17 16:00) Magnesium (Mg) (07/26/17 13:15) Vitamin B1 (Thiamine) (07/26/17 13:15) Vitamin B12 (07/26/17 13:15) Rapid Plasma Regin (Rpr) W Ttr (07/26/17 13:15) Electrocardiogram (07/26/17 ) Scd Bilateral/Knee High EMILIANO.BID (07/26/17 13:15) Inpatient Certification (07/26/17 ) Consult Psychiatry (07/26/17 ) Admit Order (Ed Use Only) (07/26/17 13:27) Labs Laboratory Tests Test 07/26/17 11:22 07/26/17 12:00 07/26/17 12:55 Blood Urea Nitrogen 8 MG/DL Creatinine 1.19 MG/DL Random Glucose 190 MG/DL Total Protein 8.5 GM/DL Albumin 3.9 GM/DL Calcium Level 9.1 MG/DL Alkaline Phosphatase 122 U/L Aspartate Amino Transf (AST/SGOT) 30 U/L Alanine Aminotransferase (ALT/SGPT) 18 U/L Total Bilirubin 0.7 MG/DL Sodium Level 137 MEQ/L Potassium Level 4.0 MEQ/L Chloride Level 102 MEQ/L Carbon Dioxide Level 17.8 MEQ/L Anion Gap 17 MEQ/L Estimat Glomerular Filtration Rate 55 ML/MIN Lactic Acid Level 7.8 mmol/L Ammonia 75 MCMOL/L Total Creatine Kinase 478 U/L Creatine Kinase MB 10.8 NG/ML Creatine Kinase MB % 2.3 % Thyroid Stimulating Hormone 3rd Gen 0.565 uIU/ML Ethyl Alcohol Level LESS THAN 3 MG/DL Urine Color LIGHT-YELLOW Urine Turbidity CLEAR Urine pH 7.0 Urine Specific [place] 1.011 Urine Protein TRACE mg/dL Urine Glucose (UA) 70 mg/dL Urine Ketones 40 mg/dL Urine Occult Blood NEG Urine Nitrite NEG Urine Bilirubin NEG Urine Urobilinogen LESS THAN 2.0 MG/DL Urine Leukocyte Esterase NEG Urine RBC 2 /hpf Urine WBC 1 /hpf Microscopic Urinalysis Comment CATH-CULT NOT IND Urine Opiates Screen NEG Urine Barbiturates Screen NEG Urine Amphetamines Screen NEG Urine Benzodiazepines Screen POS Urine Cocaine Screen NEG Urine Cannabinoids Screen NEG White Blood Count 8.6 TH/MM3 Red Blood Count 4.64 MIL/MM3 Hemoglobin 12.5 GM/DL Hematocrit 38.6 % Mean Corpuscular Volume 83.2 FL Mean Corpuscular Hemoglobin 27.0 PG Mean Corpuscular Hemoglobin Concent 32.4 % Red Cell Distribution Width 14.4 % Platelet Count 328 TH/MM3 Mean Platelet Volume 7.6 FL Neutrophils (%) (Auto) 80.4 % Lymphocytes (%) (Auto) 13.2 % Monocytes (%) (Auto) 5.8 % Eosinophils (%) (Auto) 0.1 % Basophils (%) (Auto) 0.5 % Neutrophils # (Auto) 6.9 TH/MM3 Lymphocytes # (Auto) 1.1 TH/MM3 Monocytes # (Auto) 0.5 TH/MM3 Eosinophils # (Auto) 0.0 TH/MM3 Basophils # (Auto) 0.0 TH/MM3 CBC Comment DIFF FINAL Differential Comment MDM Medical Decision Making Medical Screen Exam Complete: Yes Emergency Medical Condition: Yes Medical Record Reviewed: Yes Differential Diagnosis Acute psychosis, encephalitis, sepsis, meningitis, UTI, pneumonia, closed head injury Narrative Course The patient was placed on ECG monitoring pulse oximetry. She was placed in soft restraints. 2 mg of Ativan administered. Lab work, chest x-ray, CT brain , blood cultures, urinalysis have been ordered. 1235: The patient's family members have arrived-the patient's , son and daughter. They report that the patient started acting somewhat disoriented yesterday evening. They also believe that there may have been a recent medication change, risperidone, although they are uncertain when that would have been started. No additional history is available. Lab work is been reviewed. Lactic acid is markedly elevated at 7.8, additional liter fluid boluses been ordered. Ammonia is elevated at 75. Creatinine is 1.19, GFR is 55, anion gap 17, glucose 190, urinalysis reveals 70 glucose, [address] the brain is normal. The patient became more appropriate throughout her ED course. Given fever, tachycardia, lactic acidosis, no source of infection, Dr. Bowden discussed the possibility of lumbar puncture however family was hesitant about this and therefore it will be deferred. The patient was given broad-spectrum antibiotics. She was admitted to Dr. Nuno. Sepsis Criteria SIRS Criteria (2 or more): Temp > 100.9 or < 96.8, Heart rate over 90 Septic Shock Criteria: Lactic acid >=4 Diagnosis Primary Impression: Hyperammonemia Additional Impressions: SIRS (systemic inflammatory response syndrome) Lactic acidosis Admitting Information Admitting Physician Requests: Admit Stevie Kamara Jul 26, 2017 11:12
[2017-07-26] MEDS ORDERED: LORazepam 2 MG/ML VIAL IV PUSH ONE (11:15)
[2017-07-26] MEDS ORDERED: SODIUM CHLORIDE 0.9% FLUSH 10 ML FLUSH IV FLUSH PRN ×2 (11:15→13:15)
[2017-07-26 12:05] LABS: ALBUMIN 3.9 GM/DL (3.4-5.0); AST (GOT) 30 U/L (15-37); BICARBONATE 17.8 MEQ/L (21.0-32.0); BLOOD UREA NITROGEN 8 MG/DL (7-18); CALCIUM 9.1 MG/DL (8.5-10.1); CHLORIDE 102 MEQ/L (98-107); CREATININE 1.19 MG/DL (0.50-1.00); GLOMERULAR FILTRATION RATE 55 ML/MIN (>89); GLUCOSE,RANDOM 190 MG/DL (74-106); SODIUM (NA) 137 MEQ/L (136-145)
[2017-07-26 12:12] LABS: ALKALINE PHOSPHATASE 122 U/L (45-117); ALT (GPT) 18 U/L (10-53); TOTAL BILIRUBIN ADULT 0.7 MG/DL (0.2-1.0); TOTAL PROTEIN 8.5 GM/DL (6.4-8.2)
[2017-07-26 12:16] LABS: LACTIC ACID SEPSIS PROTOCOL 7.8 mmol/L (0.4-2.0)
[2017-07-26 12:27] LABS: BILIRUBIN, URINE NEG (NEG); BLOOD, URINE NEG (NEG); GLUCOSE,URINE 70 mg/dL (NEG); KETONE, URINE 40 mg/dL (NEG); NITRITE,URINE NEG (NEG); URINE COLOR LIGHT-YELLOW (YELLW/STRAW); URINE LEUKOCYTE ESTERASE NEG (NEG)
--- NOTE | 2017-07-26 12:31 | RADRPT ---
EXAM DATE/TIME: 07/26/2017 12:21 [place] COMPARISON: CT BRAIN W/O CONTRAST, October 07, 2016, 18:45. INDICATIONS : Confusion, altered mental status RADIATION DOSE: 34.92 CTDIvol (mGy) MEDICAL HISTORY : Seizures. Hypertension. Asthma, diabetes SURGICAL HISTORY : Tubal ligation. ENCOUNTER: Initial ACUITY: 1 day PAIN SCALE: Non-responsive LOCATION: Bilateral head TECHNIQUE: Multiple contiguous axial images were obtained of the head. Using automated exposure control and adjustment of the mA and/or kV according to patient size, radiation dose was kept as low as reasonably achievable to obtain optimal diagnostic quality images. DICOM format image data is av ailable electronically for review and comparison. FINDINGS: CEREBRUM: The ventricles are normal for age. No evidence of midline shift, mass lesion, hemorrha ge or acute infarction. No extra-axial fluid collections are seen. POSTERIOR FOSSA: The cerebellum and brainstem are intact. The 4th ventricle is midline. The cer ebellopontine angle is unremarkable. EXTRACRANIAL: The visualized portion of the orbits is intact. SKULL: The calvaria is intact. No evidence of skull fracture. CONCLUSION: Negative for an acute process Arley Gilbert MD FACR on July 26, 2017 at 12:25 Board Certified Radiologist. This report was verified electronically.
--- NOTE | 2017-07-26 13:13 | PD ---
Physical Exam Date Seen by Provider: Jul 26, 2017 Narrative This patient was brought to us by EVAC with a chief complaint of altered mental status. She was initially here by herself and was not providing any history. A little while later she did start to talk and states that her mind has been off for the last few days. Data Data Last Documented VS Vital Signs Date Time Temp Pulse Resp B/P (MAP) Pulse Ox O2 Delivery O2 Flow Rate FiO2 07/26/17 12:46 105 20 131/74 (93) 99 Room Air 07/26/17 11:00 100.9 Orders Orders Electrocardiogram (07/26/17 11:04) Ammonia (07/26/17 11:04) Complete Blood Count With Diff (07/26/17 11:04) Comprehensive Metabolic Panel (07/26/17 11:04) Creatine Kinase (Cpk) (07/26/17 11:04) Thyroid Stimulating Hormone (07/26/17 11:04) Urinalysis - C+S If Indicated (07/26/17 11:04) Lactic Acid Sepsis Protocol (07/26/17 11:04) Blood Culture (07/26/17 11:04) Chest, Single Ap (07/26/17 11:04) Ct Brain W/O Iv Contrast(Rout) (07/26/17 11:04) Blood Glucose (07/26/17 11:04) Ecg Monitoring (07/26/17 11:04) Iv Access Insert/Monitor (07/26/17 11:04) Oximetry (07/26/17 11:04) Sodium Chloride 0.9% Flush (Ns Flush) (07/26/17 11:15) Sodium Chlor 0.9% 1000 Ml Inj (Ns 1000 M (07/26/17 11:04) Drug Screen, Random Urine (07/26/17 11:04) Alcohol (Ethanol) (07/26/17 11:04) Cath For Specimen (07/26/17 11:05) Lorazepam Inj (Ativan Inj) (07/26/17 11:15) Restraints Non-Violent EMILIANO.Q3H (07/26/17 11:09) CKMB (07/26/17 11:22) CKMB% (07/26/17 11:22) Sodium Chlor 0.9% 1000 Ml Inj (Ns 1000 M (07/26/17 12:28) Cefepime Inj (Maxipime Inj) (07/26/17 13:15) Vancomycin Inj (Vancomycin Inj) (07/26/17 13:15) Lactic Acid Sepsis Protocol (07/26/17 13:17) Admit To Inpatient (07/26/17 ) Code Status (07/26/17 13:15) Vital Signs (Adult) Q4H (07/26/17 13:15) Activity Oob With Assistance (07/26/17 13:15) Neuro Checks Q4H (07/26/17 13:15) Resolution Analyst / Telemetry EMILIANO.Q8H (07/26/17 13:15) Diet Heart Healthy (07/26/17 Lunch) Sodium Chloride 0.9% Flush (Ns Flush) (07/26/17 13:15) Sodium Chloride 0.9% Flush (Ns Flush) (07/26/17 21:00) Lorazepam (Ativan) (07/26/17 13:15) Complete Blood Count With Diff (07/27/17 06:00) Basic Metabolic Panel (Bmp) (07/27/17 06:00) Hepatic Functional Panel (07/26/17 13:15) Lactic Acid (07/26/17 16:00) Magnesium (Mg) (07/26/17 13:15) Vitamin B1 (Thiamine) (07/26/17 13:15) Vitamin B12 (07/26/17 13:15) Rapid Plasma Regin (Rpr) W Ttr (07/26/17 13:15) Electrocardiogram (07/26/17 ) Scd Bilateral/Knee High EMILIANO.BID (07/26/17 13:15) Inpatient Certification (07/26/17 ) Consult Psychiatry (07/26/17 ) Labs Laboratory Tests Test 07/26/17 11:22 07/26/17 12:00 07/26/17 12:55 Blood Urea Nitrogen 8 MG/DL Creatinine 1.19 MG/DL Random Glucose 190 MG/DL Total Protein 8.5 GM/DL Albumin 3.9 GM/DL Calcium Level 9.1 MG/DL Alkaline Phosphatase 122 U/L Aspartate Amino Transf (AST/SGOT) 30 U/L Alanine Aminotransferase (ALT/SGPT) 18 U/L Total Bilirubin 0.7 MG/DL Sodium Level 137 MEQ/L Potassium Level 4.0 MEQ/L Chloride Level 102 MEQ/L Carbon Dioxide Level 17.8 MEQ/L Anion Gap 17 MEQ/L Estimat Glomerular Filtration Rate 55 ML/MIN Lactic Acid Level 7.8 mmol/L Ammonia 75 MCMOL/L Total Creatine Kinase 478 U/L Creatine Kinase MB 10.8 NG/ML Creatine Kinase MB % 2.3 % Thyroid Stimulating Hormone 3rd Gen 0.565 uIU/ML Ethyl Alcohol Level LESS THAN 3 MG/DL Urine Color LIGHT-YELLOW Urine Turbidity CLEAR Urine pH 7.0 Urine Specific [place] 1.011 Urine Protein TRACE mg/dL Urine Glucose (UA) 70 mg/dL Urine Ketones 40 mg/dL Urine Occult Blood NEG Urine Nitrite NEG Urine Bilirubin NEG Urine Urobilinogen LESS THAN 2.0 MG/DL Urine Leukocyte Esterase NEG Urine RBC 2 /hpf Urine WBC 1 /hpf Microscopic Urinalysis Comment CATH-CULT NOT IND Urine Opiates Screen NEG Urine Barbiturates Screen NEG Urine Amphetamines Screen NEG Urine Benzodiazepines Screen POS Urine Cocaine Screen NEG Urine Cannabinoids Screen NEG White Blood Count 8.6 TH/MM3 Red Blood Count 4.64 MIL/MM3 Hemoglobin 12.5 GM/DL Hematocrit 38.6 % Mean Corpuscular Volume 83.2 FL Mean Corpuscular Hemoglobin 27.0 PG Mean Corpuscular Hemoglobin Concent 32.4 % Red Cell Distribution Width 14.4 % Platelet Count 328 TH/MM3 Mean Platelet Volume 7.6 FL Neutrophils (%) (Auto) 80.4 % Lymphocytes (%) (Auto) 13.2 % Monocytes (%) (Auto) 5.8 % Eosinophils (%) (Auto) 0.1 % Basophils (%) (Auto) 0.5 % Neutrophils # (Auto) 6.9 TH/MM3 Lymphocytes # (Auto) 1.1 TH/MM3 Monocytes # (Auto) 0.5 TH/MM3 Eosinophils # (Auto) 0.0 TH/MM3 Basophils # (Auto) 0.0 TH/MM3 CBC Comment DIFF FINAL Differential Comment MDM Supervised Visit with VENKATA: Yes Narrative Course I, Dr. Bowden, have reviewed the advance practice practitioner's documentation and am in agreement, met with the patient face to face, made the diagnosis, and the medical decision making was done by me. *My assessment and Findings: Vital Signs Date Time Temp Pulse Resp B/P (MAP) Pulse Ox O2 Delivery O2 Flow Rate FiO2 07/26/17 12:46 105 20 131/74 (93) 99 Room Air 07/26/17 11:00 100.9 145 20 168/130 (143) 100 Room Air 07/26/17 11:00 20 100 Room Air 07/26/17 10:49 100.9 145 20 168/130 (143) 98 A septic workup was initiated based upon her initial vital signs. BMP Diagram 07/26/17 11:22 Total Protein 8.5 H, Albumin 3.9, Calcium Level 9.1, Alkaline Phosphatase 122 H , Aspartate Amino Transf (AST/SGOT) 30, Alanine Aminotransferase (ALT/SGPT) 18, Total Bilirubin 0.7 Tox screen is positive for benzodiazepines. The patient was given benzodiazepines in the emergency department. UA is negative for infection. Lactic acid level is 7.8. CT of the head is negative. Chest x-ray is negative for infiltrate to my interpretation. The patient's blood has been re-collected for her CBC. I have discussed spinal tap with the patient and several family members on 2 occasions. The patient has a daughter in the room who is extremely anxious and who is answering for the patient. The patient's insurance is [facility]. I will consult Dr. Nuno. Perhaps he will be able to better speak with the family regarding the spinal tap. In the meantime, the patient will be given broad-spectrum antibiotics. The case has subsequently been discussed with Dr. Nuno. As the patient is now lucid and has a supple neck, LP will be deferred. Dr. Nuno will reassess the situation later this afternoon. The patient has been covered for possible meningitis with cefepime and vancomycin. Critical Care Narrative Aggregate critical care time was 45 minutes. Time to perform other separately billable procedures was not included in the critical care time. My time did not include minutes spent treating any other patients simultaneously or on activities that did not directly contribute to the patient's treatment. The services I provided to this patient were to treat and/or prevent clinically significant deterioration due to altered mental status, sepsis I provided critical care services requiring my management, as noted below: Chart data review, documentation time, medication orders and management, vital sign assessments/reviewing monitor data, ordering and reviewing lab tests, ordering and interpreting/reviewing x-rays and diagnostic studies, care of the patient and discussion of the patient with the admitting physicians Yina Bowden MD Jul 26, 2017 13:13
[2017-07-26] MEDS ORDERED: VANCOMYCIN INJ 1,000 MG in SODIUM CHLOR 0.9% 250 ML INJ 250 ML IV ONE (13:15)
[2017-07-26] MEDS ORDERED: CEFEPIME INJ 2,000 MG in SODIUM CHLORIDE 0.9% INJ 100 ML IV ONE (13:15)
[2017-07-26] MEDS ORDERED: XANA1TAB2 PO (13:16)
[2017-07-26] MEDS ORDERED: AMIT100T2 PO (13:16)
[2017-07-26] MEDS ORDERED: NAPR500T2 PO (13:16)
[2017-07-26] MEDS ORDERED: ATOR80TA45 PO (13:16)
[2017-07-26 13:18] LABS: AUTOMATED NEUTROPHIL # 6.9 TH/MM3 (1.8-7.7); BASOPHIL % 0.5 % (0.0-2.0); EOSINOPHIL % 0.1 % (0.0-4.0); HEMATOCRIT 38.6 % (35.0-46.0); HEMOGLOBIN 12.5 GM/DL (11.6-15.3); LYMPH % 13.2 % (9.0-44.0); LYMPHOCYTE # 1.1 TH/MM3 (1.0-4.8); MEAN CELL VOLUME 83.2 FL (80.0-100.0); MEAN CORPUSCULAR HGB CONC 32.4 % (32.0-36.0); MEAN PLATELET VOLUME 7.6 FL (7.0-11.0); MONO % 5.8 % (0.0-8.0); MONOCYTE # 0.5 TH/MM3 (0-0.9); NEUT % 80.4 % (16.0-70.0); PLATELET COUNT 328 TH/MM3 (150-450); RED BLOOD COUNT 4.64 MIL/MM3 (4.00-5.30); RED CELL DISTRIBUTION WIDTH 14.4 % (11.6-17.2); WHITE BLOOD COUNT 8.6 TH/MM3 (4.0-11.0)
--- NOTE | 2017-07-26 13:35 | RADRPT ---
EXAM DATE/TIME: 07/26/2017 12:50 [facility] COMPARISON: No previous studies available for comparison. INDICATIONS : Fever. MEDICAL HISTORY : None. SURGICAL HISTORY : None. ENCOUNTER: Initial ACUITY: 1 day PAIN SCORE: 0/10 LOCATION: Bilateral chest FINDINGS: Platelike airspace disease in the left lower lung zone with slight volume loss. Cardiomediastinal con tours are within normal limits. Bony thorax is intact. CONCLUSION: 1. Platelike airspace disease with associated mild volume loss in the left lower lobe most consistent with atelectasis. Tank Peña MD on July 26, 2017 at 13:32 Board Certified Radiologist. This report was verified electronically.
[2017-07-26] MEDS ORDERED: LORazepam 0.5 MG TAB PO PRN (14:00)
[2017-07-26 14:30] LABS: LACTIC ACID SEPSIS PROTOCOL 2.5 mmol/L (0.4-2.0)
--- NOTE | 2017-07-26 14:59 | EKG ---
Date Performed: 07/26/2017 Time Performed: 11:45:40 PTAGE: 67 years EKG: SINUS TACHYCARDIA POSSIBLE RIGHT VENTRICULAR CONDUCTION DELAY MODERATE ST DEPRESSION ABNORM AL ECG Compared to prior electrocardiogram, rate has increased And nonspecific STT wave changes with right ventricular conduction delay are present. PREVIOUS TRACING : 12/28/2008 16.51 DOCTOR: Chaka Miranda Interpretating Date/Time 07/26/2017 14:58:33
[2017-07-26 16:00] LABS: ALBUMIN 3.3 GM/DL (3.4-5.0); DIRECT BILIRUBIN ADULT 0.2 MG/DL (0.0-0.2); INDIRECT BILIRUBIN 0.3 MG/DL (0.0-0.8); MAGNESIUM 1.9 MG/DL (1.5-2.5); TOTAL BILIRUBIN ADULT 0.5 MG/DL (0.2-1.0); TOTAL PROTEIN 7.5 GM/DL (6.4-8.2)
--- NOTE | 2017-07-26 17:50 | HHI.HP ---
HPI Service [facility] Hospitalists Primary Care Physician Unknown Admission Diagnosis SIRS, lactic acidosis, hyperammonemia Chief Complaint: AMS Travel History International Travel<30 Days: No Contact w/Intl Traveler <30 Da: No Traveled to Known Affected Are: No History of Present Illness Patient is a pleasant and cooperative 67-year-old female who was brought to the ER by her family due to altered mental status. The family reports that the patient recently had a change in her medications. The patient has a history of bipolar disorder. Patient sees a private psychiatrist, . Per family, patient's Risperdal was recently increased, and the patient has become lethargic over the last few days to the point where she was rarely getting out of bed and difficult to rouse. I have reviewed the patient's outpatient records in the [facility] EHR . Unfortunately, it appears that the patient is likely new to [facility] and there are no records for me to review in the [facility] EHR. I have reviewed the patient's previous records at [facility]. Patient was most recently admitted under [place] act for psychosis September 2016. At that time patient was attended by psychiatry, Dr. Ric Anna. Patient now appears much different from the ER's report of Ms. Alves clinical status upon arrival. Patient is able to answer questions appropriately , but not a wonderful historian. Patient appears nontoxic, and the physical examination is unremarkable. Specifically, patient does NOT appear septic. Patient actually has no acute medical complaints at this time. I will NOT resume patient's reported psychiatric medications at this time, since it appears she may have been overmedicated. I have placed consultation with psychiatry. I await with interest psychiatry consultation. Patient denies fever or chills. Patient denies cough, shortness of breath, or wheezing. Patient denies sick contacts or recent travel. Patient denies complaint of neck stiffness or headache. Review of Systems Constitutional: DENIES: Diaphoretic episodes, Fatigue, Fever, Weight gain, Weight loss, Chills, Dizziness, Change in appetite, Night Sweats Endocrine: DENIES: Heat/cold intolerance, Polydipsia, Polyuria, Polyphagia Eyes: DENIES: Blurred vision, Diplopia, Eye inflammation, Eye pain, Vision loss , Photosensitivity, Double Vision Ears, nose, mouth, throat: DENIES: Tinnitus, Hearing loss, Vertigo, Nasal discharge, Oral lesions, Throat pain, Hoarseness, Ear Pain, Running Nose, Epistaxis, Sinus Pain, Toothache, Odynophagia Respiratory: DENIES: Apneas, Cough, Snoring, Wheezing, Hemoptysis, Sputum production, Shortness of breath Cardiovascular: DENIES: Chest pain, Palpitations, Syncope, Dyspnea on Exertion , PND, Lower Extremity Edema, Orthopnea, Claudication Gastrointestinal: DENIES: Abdominal pain, Black stools, Bloody stools, BRB per rectum, Constipation, Diarrhea, GERD, Nausea, Reflux, Vomiting, Difficulty Swallowing, Anorexia Genitourinary: DENIES: Urinary frequency, Urinary incontinence, Urgency, Hematuria, Dysuria, Nocturia Musculoskeletal: DENIES: Joint pain, Muscle aches, Stiffness, Joint Swelling, Back pain, Neck pain Integumentary: DENIES: Abnormal pigmentation, Pruritus, Rash, Nail changes, Breast masses, Breast skin changes, Nipple discharge Hematologic/lymphatic: DENIES: Bruising, Lymphadenopathy Immunologic/allergic: DENIES: Eczema, Urticaria Neurologic: DENIES: Abnormal gait, Headache, Localized weakness, Paresthesias, Seizures, Speech Problems, Tremor, Poor Balance Psychiatric: COMPLAINS OF: History of Bipolar Past Family Social History Past Medical History 1) bipolar disorder 2) prior hospitalization for psychosis 3) hypertension 4) diabetes 5) seizure disorder? 6) memory loss, dementia? Past Surgical History 1) tubal ligation, 1984 Allergies: Coded Allergies: penicillin G (Unverified Allergy, Intermediate, SWELLING, 07/26/17) Active Ordered Medications Last Impressions Head CT 07/26/17 1104 Signed Impressions: Service Date/Time: Wednesday, July 26, 2017 12:21 - CONCLUSION: Negative for an acute process Arley Gilbert MD FACR Chest X-Ray 07/26/17 1104 Signed Impressions: Service Date/Time: Wednesday, July 26, 2017 12:50 - CONCLUSION: 1. Platelike airspace disease with associated mild volume loss in the left lower lobe most consistent with atelectasis. Tank Peña MD Family History Noncontributory Social History - - Patient lives with and daughter - No tobacco - No alcohol - No illicit street drugs Physical Exam Vital Signs Vital Signs Date Time Temp Pulse Resp B/P (MAP) Pulse Ox O2 Delivery O2 Flow Rate FiO2 07/26/17 16:02 97 20 121/75 (90) 100 Room Air 07/26/17 13:55 98.4 86 20 114/71 (85) 100 Room Air 07/26/17 12:46 105 20 131/74 (93) 99 Room Air 07/26/17 11:00 100.9 145 20 168/130 (143) 100 Room Air 07/26/17 11:00 20 100 Room Air 07/26/17 10:49 100.9 145 20 168/130 (143) 98 Physical Exam GENERAL: This is a well-nourished, well-developed patient, in no apparent distress. SKIN: No rashes, ecchymoses or lesions. Cool and dry. HEAD: Atraumatic. Normocephalic. No temporal or scalp tenderness. EYES: Pupils equal round and reactive. Extraocular motions intact. No scleral icterus. No injection or drainage. ENT: Nose without bleeding, purulent drainage or septal hematoma. Throat without erythema, tonsillar hypertrophy or exudate. Uvula midline. Airway patent. NECK: Trachea midline. No JVD or lymphadenopathy. Supple, nontender, no meningeal signs. CARDIOVASCULAR: Regular rate and rhythm without murmurs, gallops, or rubs. RESPIRATORY: Clear to auscultation. Breath sounds equal bilaterally. No wheezes , rales, or rhonchi. GASTROINTESTINAL: Abdomen soft, non-tender, nondistended. No hepato-splenomegaly , or palpable masses. No guarding. MUSCULOSKELETAL: Extremities without clubbing, cyanosis, or edema. No joint tenderness, effusion, or edema noted. No calf tenderness. Negative Homans sign bilaterally. NEUROLOGICAL: Awake and alert. Cranial nerves II through XII intact. Motor and sensory grossly within normal limits. Five out of 5 muscle strength in all muscle groups. Normal speech. Laboratory Laboratory Tests Test 07/26/17 11:22 07/26/17 12:00 07/26/17 12:55 07/26/17 13:35 Blood Urea Nitrogen 8 Creatinine 1.19 Random Glucose 190 Total Protein 8.5 Albumin 3.9 Calcium Level 9.1 Alkaline Phosphatase 122 Aspartate Amino Transf (AST/SGOT) 30 Alanine Aminotransferase (ALT/SGPT) 18 Total Bilirubin 0.7 Sodium Level 137 Potassium Level 4.0 Chloride Level 102 Carbon Dioxide Level 17.8 Anion Gap 17 Estimat Glomerular Filtration Rate 55 Lactic Acid Level 7.8 2.5 Ammonia 75 Total Creatine Kinase 478 Creatine Kinase MB 10.8 Creatine Kinase MB % 2.3 Thyroid Stimulating Hormone 3rd Gen 0.565 Ethyl Alcohol Level LESS THAN 3 Urine Color LIGHT-YELLOW Urine Turbidity CLEAR Urine pH 7.0 Urine Specific Stamps 1.011 Urine Protein TRACE Urine Glucose (UA) 70 Urine Ketones 40 Urine Occult Blood NEG Urine Nitrite NEG Urine Bilirubin NEG Urine Urobilinogen LESS THAN 2.0 Urine Leukocyte Esterase NEG Urine RBC 2 Urine WBC 1 Microscopic Urinalysis Comment CATH-CULT NOT IND Urine Opiates Screen NEG Urine Barbiturates Screen NEG Urine Amphetamines Screen NEG Urine Benzodiazepines Screen POS Urine Cocaine Screen NEG Urine Cannabinoids Screen NEG White Blood Count 8.6 Red Blood Count 4.64 Hemoglobin 12.5 Hematocrit 38.6 Mean Corpuscular Volume 83.2 Mean Corpuscular Hemoglobin 27.0 Mean Corpuscular Hemoglobin Concent 32.4 Red Cell Distribution Width 14.4 Platelet Count 328 Mean Platelet Volume 7.6 Neutrophils (%) (Auto) 80.4 Lymphocytes (%) (Auto) 13.2 Monocytes (%) (Auto) 5.8 Eosinophils (%) (Auto) 0.1 Basophils (%) (Auto) 0.5 Neutrophils # (Auto) 6.9 Lymphocytes # (Auto) 1.1 Monocytes # (Auto) 0.5 Eosinophils # (Auto) 0.0 Basophils # (Auto) 0.0 CBC Comment DIFF FINAL Differential Comment Test 07/26/17 14:49 Magnesium Level 1.9 Total Bilirubin 0.5 Direct Bilirubin 0.2 Indirect Bilirubin 0.3 Aspartate Amino Transf (AST/SGOT) 26 Alanine Aminotransferase (ALT/SGPT) 15 Alkaline Phosphatase 107 Total Protein 7.5 Albumin 3.3 Vitamin B12 Level 416 Date/Time Source Procedure Growth Status 07/26/17 11:22 Blood Peripheral Aerobic Blood Culture Pending Received 07/26/17 11:22 Blood Peripheral Anaerobic Blood Culture Pending Received Result Diagram: 07/26/17 1255 07/26/17 1122 Imaging Last Impressions Head CT 07/26/17 1104 Signed Impressions: Service Date/Time: Wednesday, July 26, 2017 12:21 - CONCLUSION: Negative for an acute process Arley Gilbert MD FACR Chest X-Ray 07/26/17 1104 Signed Impressions: Service Date/Time: Wednesday, July 26, 2017 12:50 - CONCLUSION: 1. Platelike airspace disease with associated mild volume loss in the left lower lobe most consistent with atelectasis. Tank Peña MD Septic Shock Reassessment Septic shock perfusion: reassessment completed Caprini VTE Risk Assessment Caprini VTE Risk Assessment: No/Low Risk (score <= 1) Caprini Risk Assessment Model Point Value = 1 Point Value = 2 Point Value = 3 Point Value = 5 Age 41-60 Minor surgery BMI > 25 kg/m2 Swollen legs Varicose veins or History of unexplained or recurrent spontaneous Oral contraceptives or hormone replacement Sepsis (< 1 month) Serious lung disease, including pneumonia (< 1 month) Abnormal pulmonary function Acute myocardial infarction Congestive heart failure (< 1 month) History of inflammatory bowel disease Medical patient at bed rest Age 61-74 Arthroscopic surgery Major open surgery (> 45 min) Laparoscopic surgery (> 45 min) Malignancy Confined to bed (> 72 hours) Immobilizing plaster cast Central venous access Age >= 75 History of VTE Family history of VTE Factor V Leiden Prothrombin [id number] Lupus anticoagulant Anticardiolipin antibodies Elevated serum homocysteine Heparin-induced thrombocytopenia Other congenital or acquired thrombophilia Stroke (< 1 month) Elective arthroplasty Hip, pelvis, or leg fracture Acute spinal cord injury (< 1 month) Prophylaxis Regimen Total Risk Factor Score Risk Level Prophylaxis Regimen 0-1 Low Early ambulation 2 Moderate Order ONE of the following: *Sequential Compression Device (SCD) *Heparin 5000 units SQ BID 3-4 Higher Order ONE of the following medications: *Heparin 5000 units SQ TID *Enoxaparin/Lovenox 40 mg SQ daily (WT < 150 kg, CrCl > 30 mL/min) *Enoxaparin/Lovenox 30 mg SQ daily (WT < 150 kg, CrCl > 10-29 mL/min) *Enoxaparin/Lovenox 30 mg SQ BID (WT < 150 kg, CrCl > 30 mL/min) AND/OR *Sequential Compression Device (SCD) 5 or more Highest Order ONE of the following medications: *Heparin 5000 units SQ TID (Preferred with Epidurals) *Enoxaparin/Lovenox 40 mg SQ daily (WT < 150 kg, CrCl > 30 mL/min) *Enoxaparin/Lovenox 30 mg SQ daily (WT < 150 kg, CrCl > 10-29 mL/min) *Enoxaparin/Lovenox 30 mg SQ BID (WT < 150 kg, CrCl > 30 mL/min) AND *Sequential Compression Device (SCD) Assessment and Plan Problem List: (1) Altered mental status ICD Codes: R41.82 - Altered mental status, unspecified Status: Acute Plan: - Per ER report patient was lethargic upon arrival - Per family recent medication dose change by psychiatry, Risperdal - Outpatient records are not available to me - Patient alert and oriented at the time of my visit, but not good historian as to her past medical history - Patient does not appear septic - IV Ativan prn agitation - will NOT restart psychiatric medications - Await Psychiatry consultation - It would be helpful to have availability of patient's outpatient records. - I will discuss case with [facility] case management, and see if outpatient records could be obtained from current/previous providers And scanned into the [facility] EHR for future reference - DVT prophylaxis - supportive care - repeat lactic acid in AM for completeness. - anticipate d/c to home in 2-3 days (2) Bipolar disorder ICD Codes: F31.9 - Bipolar disorder, unspecified Status: Chronic Plan: - await input from Psychiatry (3) HTN (hypertension) ICD Codes: I10 - Essential (primary) hypertension Status: Chronic Plan: - continue coreg (4) DM2 (diabetes mellitus, type 2) ICD Codes: E11.9 - Type 2 diabetes mellitus without complications Status: Chronic Plan: - hold metformin - [facility] Physician Certification 2 Midnight Certification Type: Admission for Inpatient Services Order for Inpatient Services The services are ordered in accordance with Medicare regulations or non- Medicare payer requirements, as applicable. In the case of services not specified as inpatient-only, they are appropriately provided as inpatient services in accordance with the 2-midnight benchmark. Estimated LOS (days): 3 3 days is the estimated time the patient will need to remain in the hospital, assuming treatment plan goals are met and no additional complications. Post-Hospital Plan: Not yet determined Problem Qualifiers (1) Altered mental status: Qualified Codes: R41.82 - Altered mental status, unspecified (2) Bipolar disorder: (3) HTN (hypertension): Qualified Codes: I10 - Essential (primary) hypertension (4) DM2 (diabetes mellitus, type 2): Qualified Codes: E11.8 - Type 2 diabetes mellitus with unspecified complications Hal Nuno DO Jul 26, 2017 17:50
[2017-07-26] MEDS: ATORVASTATIN 80 MG TAB PO SCH (21:29)
[2017-07-26] MEDS: DONEPEZIL HCL 5 MG TAB PO SCH (21:29)
[2017-07-26] MEDS: CARVEDILOL 3.125 MG TAB PO SCH (21:29)
[2017-07-26] MEDS: SODIUM CHLORIDE 0.9% FLUSH 10 ML FLUSH IV FLUSH SCH (21:30)
[2017-07-27] VITALS (9 sets, daily range): BP systolic 102–169; BP diastolic 52–97; PULSE 81–101; RESP 16–20; TEMP 97.9–99; O2SAT 97–100
[2017-07-27 07:12] LABS: AUTOMATED NEUTROPHIL # 3.6 TH/MM3 (1.8-7.7); BASOPHIL % 0.4 % (0.0-2.0); EOSINOPHIL # 0.1 TH/MM3 (0-0.4); HEMATOCRIT 36.1 % (35.0-46.0); HEMOGLOBIN 11.7 GM/DL (11.6-15.3); LYMPH % 39.8 % (9.0-44.0); LYMPHOCYTE # 2.9 TH/MM3 (1.0-4.8); MEAN CELL VOLUME 83.7 FL (80.0-100.0); MEAN CORPUSCULAR HEMOGLOBIN 27.2 PG (27.0-34.0); MEAN CORPUSCULAR HGB CONC 32.5 % (32.0-36.0); MEAN PLATELET VOLUME 7.8 FL (7.0-11.0); MONO % 7.9 % (0.0-8.0); MONOCYTE # 0.6 TH/MM3 (0-0.9); NEUT % 49.9 % (16.0-70.0); PLATELET COUNT 314 TH/MM3 (150-450); RED BLOOD COUNT 4.31 MIL/MM3 (4.00-5.30); RED CELL DISTRIBUTION WIDTH 14.4 % (11.6-17.2); WHITE BLOOD COUNT 7.2 TH/MM3 (4.0-11.0)
[2017-07-27 07:42] LABS: BICARBONATE 23.4 MEQ/L (21.0-32.0); CALCIUM 8.1 MG/DL (8.5-10.1); CREATININE 0.99 MG/DL (0.50-1.00)
[2017-07-27] MEDS: SODIUM CHLORIDE 0.9% FLUSH 10 ML FLUSH IV FLUSH SCH ×2 (09:00→21:33)
[2017-07-27] MEDS: CARVEDILOL 3.125 MG TAB PO SCH ×2 (09:03→21:32)
[2017-07-27] MEDS ORDERED: POTASSIUM CHLORIDE 20 MEQ CONTROLLED RELEASE TAB PO ONE (09:30)
--- NOTE | 2017-07-27 11:00 | RADRPT ---
EXAM DATE/TIME: 07/27/2017 10:03 [facility] COMPARISON: CHEST SINGLE AP, July 26, 2017, 12:50. INDICATIONS : Coughing, short of breath MEDICAL HISTORY : AMS SURGICAL HISTORY : None. ENCOUNTER: Initial ACUITY: 2 days PAIN SCORE: 0/10 LOCATION: Bilateral chest FINDINGS: Frontal and lateral views of the chest demonstrate a normal-sized cardiac silhouette. Lungs are under inflated. There is linear opacity at the left lung base. No pleural effusion, consolidation, or pneum othorax is identified. The bones and soft tissues demonstrate no acute finding. There are degenerativ e changes of the thoracic spine. CONCLUSION: Stable chest x-ray with atelectasis versus scar at the left lung base. Otherwise, no acute cardiopulm onary abnormality is identified. Ric Figueredo MD on July 27, 2017 at 10:56 Board Certified Radiologist. This report was verified electronically.
[2017-07-27] MEDS ORDERED: ALPRAZolam 1 MG TAB PO PRN (12:00)
--- NOTE | 2017-07-27 12:01 | PD.PSY.CON ---
Provisional Diagnosis Admission Date Jul 26, 2017 at 13:29 Stanton I. Unspecified psychosis vs delirium due to another underlying medical condition Stanton II. Deferred Stanton III. Asthma, diabetes History of Present Illness Service Psychiatry Consult Requested By Medicine Reason for Consult Agitation Primary Care Physician Unknown HPI The patient is a 67-year-old -[place] woman, domiciled in [facility] with her , unemployed, supported by Social Security, with psychiatric history of mild dementia, bipolar depression, previous psychiatric hospitalizations, no previous suicide attempts, she was hospitalized here in [place] in 2017 due to a brief psychotic episode under the care of Dr. Anna, documentation reviewed , the patient has an established outpatient psychiatric care with Dr. Webb, she is on Xanax 1 mg 3 times daily, amitriptyline 100 mg at bedtime, risperidone 1 mg twice daily, Aricept 10 mg, medical history of asthma and diabetes who was brought to the ER by her family due to altered mental status.The family reports that the patient recently had a change in her medications. Per family, patient' s Risperdal was recently increased, and the patient has become lethargic over the last few days to the point where she was rarely getting out of bed and difficult to rouse. She was consulted to psychiatry to address agitation and medication management. On psychiatric evaluation today I find a patient with calm, cooperative and pleasant. The patient reports good mood, rates her mood as 9/10. The patient denies depressive symptoms, denies anhedonia, denies hopelessness, denies helplessness, denies problems with sleep, problems with appetite. He denies suicidal and homicidal ideation, she denies visual and auditory hallucinations. Patient is fully oriented 3, with good recent and immediate recall, executive, language and abstraction at the moment of this evaluation. The patient reports that she cannot understand what happened with her, "this is not the first time this happened to me". She denies the use of illegal drugs, denies the use of alcohol. She denies overusing her psychotropics. Review of Systems Constitutional: DENIES: Diaphoretic episodes, Fatigue, Fever, Weight gain, Weight loss, Chills, Dizziness, Change in appetite, Night Sweats Endocrine: DENIES: Abnorml menstrual pattern, Heat/cold intolerance, Polydipsia , Polyuria, Polyphagia Eyes: DENIES: Blurred vision, Diplopia, Eye inflammation, Eye pain, Vision loss , Photosensitivity, Double Vision Ears, nose, mouth, throat: DENIES: Tinnitus, Hearing loss, Vertigo, Nasal discharge, Oral lesions, Throat pain, Hoarseness, Ear Pain, Running Nose, Epistaxis, Sinus Pain, Toothache, Odynophagia Respiratory: DENIES: Apneas, Cough, Snoring, Wheezing, Hemoptysis, Sputum production, Shortness of breath Cardiovascular: DENIES: Chest pain, Palpitations, Syncope, Dyspnea on Exertion , PND, Lower Extremity Edema, Orthopnea, Claudication Gastrointestinal: DENIES: Abdominal pain, Black stools, Bloody stools, Constipation, Diarrhea, Nausea, Vomiting, Difficulty Swallowing, Anorexia Genitourinary: DENIES: Abnormal vaginal bleeding, Dysmenorrhea, Dyspareunia, Sexual dysfunction, Urinary frequency, Urinary incontinence, Urgency, Hematuria , Dysuria, Nocturia, Vaginal discharge Musculoskeletal: DENIES: Joint pain, Muscle aches, Stiffness, Joint Swelling, Back pain, Neck pain Integumentary: DENIES: Abnormal pigmentation, Pruritus, Rash, Nail changes, Breast masses, Breast skin changes, Nipple discharge Hematologic/lymphatic: DENIES: Bruising, Lymphadenopathy Immunologic/allergic: DENIES: Eczema, Urticaria Neurologic: DENIES: Abnormal gait, Headache, Localized weakness, Paresthesias, Seizures, Speech Problems, Tremor, Poor Balance Psychiatric: DENIES: Anxiety, Confusion, Mood changes, Depression, Hallucinations, Agitation, Suicidal Ideation, Homicidal Ideation, Delusions Past Family Social History Coded Allergies: penicillin G (Unverified Allergy, Intermediate, SWELLING, 07/26/17) Reported Medications Naproxen (Naproxen) 500 Mg Tab, 500 MG PO BID Y for PAIN SCALE 1 TO 10, TAB 0 Refills 07/26/17 Atorvastatin (Atorvastatin) 80 Mg Tab, 80 MG PO HS for Cholesterol Management, TAB 0 Refills 07/26/17 Amitriptyline (Amitriptyline) 100 Mg Tab, 100 MG PO HS for Control Depression, TAB 0 Refills 07/26/17 Alprazolam (Xanax) 1 Mg Tab, 1 MG PO DAILY Y for ANXIETY, TAB 0 Refills 07/26/17 Folic Acid (Folic Acid) 1 Mg Tablet, 1 MG PO DAILY 10/07/16 Ergocalciferol (Ergocalciferol) 50,000 Unit Cap, 47464 UNITS PO Q7D for Nutritional Supplement, #30 CAP 0 Refills 10/07/16 Donepezil (Donepezil) 10 Mg Tab, 10 MG PO HS for Dementia, #30 TAB 0 Refills 10/07/16 Carvedilol (Coreg) 3.125 Mg Tab, 3.125 MG PO BID, #60 TAB 0 Refills 10/07/16 Risperidone (Risperdal) 1 Mg Tab, 1 MG PO BID, #30 TAB 0 Refills 10/07/16 Metformin (Metformin) 1,000 Mg Tab, 1000 MG PO BIDPC for Blood Sugar Management , #60 TAB 0 Refills With meals 10/07/16 Discontinued Reported Medications Amitriptyline (Amitriptyline) 150 Mg Tab, 150 MG PO HS for Control Depression, # 30 TAB 0 Refills 10/07/16 Alprazolam (Xanax) 0.5 Mg Tab, 0.5 MG PO Q6H Y for ANXIETY, TAB 0 Refills 10/07/16 Discontinued Scripts Amitriptyline (Amitriptyline) 75 Mg Tab, 75 MG PO HS for Control Depression, #7 TAB 0 Refills Prov:Ric Anna MD 10/09/16 Risperidone (Risperdal) 1 Mg Tab, 1 MG PO BID for health, #14 TAB 0 Refills Prov:Ric Anna MD 10/09/16 Alprazolam (Xanax) 0.5 Mg Tab, 0.5 MG PO HS Y for MILD ANXIETY, #7 TAB 0 Refills Prov:Ric Anna MD 10/09/16 Current Medications Medications (Trade) Dose Ordered Sig/Tim Route Start Time Stop Time Status Last Admin (NS Flush) 2 ml UNSCH PRN IV FLUSH 07/26/17 13:15 (NS Flush) 2 ml BID IV FLUSH 07/26/17 21:00 07/27/17 09:00 (Ativan) 0.5 mg Q8H PRN PO 07/26/17 14:00 (Lipitor) 80 mg HS PO 07/26/17 21:00 07/26/17 21:29 (Coreg) 3.125 mg BID PO 07/26/17 21:00 07/27/17 09:03 (Aricept) 10 mg HS PO 07/26/17 21:00 07/26/17 21:29 (NovoLOG SUPPLEMENTAL SCALE) 1 ACHS SLIDING SCALE SQ 07/27/17 12:00 (Xanax) 1 mg DAILY PRN PO 07/27/17 12:00 UNV (Elavil) 100 mg HS PO 07/27/17 21:00 UNV (risperDAL) 1 mg BID PO 07/27/17 21:00 UNV Family Psych History No family psychiatric history Social History Patient was born and raised in [place], she lives in [facility] with her and daughter, unemployed, supported by Social Security, her highest level of education is 2 year college Patient's Strengths (min. 2) Family support, outpatient psychiatric Physical Exam No tremors, no EPS, no stiffness, no withdrawal symptoms, no psychomotor agitation or retardation Vital Signs Vital Signs Date Time Temp Pulse Resp B/P (MAP) Pulse Ox O2 Delivery O2 Flow Rate FiO2 07/27/17 08:00 98.3 83 20 118/58 (78) 100 07/27/17 07:00 Room Air Lab Results Test 07/26/17 12:00 07/26/17 12:55 07/26/17 13:35 07/26/17 14:49 Urine Color LIGHT-YELLOW Urine Turbidity CLEAR Urine pH 7.0 Urine Specific [place] 1.011 Urine Protein TRACE mg/dL Urine Glucose (UA) 70 mg/dL Urine Ketones 40 mg/dL Urine Occult Blood NEG Urine Nitrite NEG Urine Bilirubin NEG Urine Urobilinogen LESS THAN 2.0 MG/DL Urine Leukocyte Esterase NEG Urine RBC 2 /hpf Urine WBC 1 /hpf Microscopic Urinalysis Comment CATH-CULT NOT IND Urine Opiates Screen NEG Urine Barbiturates Screen NEG Urine Amphetamines Screen NEG Urine Benzodiazepines Screen POS Urine Cocaine Screen NEG Urine Cannabinoids Screen NEG White Blood Count 8.6 TH/MM3 Red Blood Count 4.64 MIL/MM3 Hemoglobin 12.5 GM/DL Hematocrit 38.6 % Mean Corpuscular Volume 83.2 FL Mean Corpuscular Hemoglobin 27.0 PG Mean Corpuscular Hemoglobin Concent 32.4 % Red Cell Distribution Width 14.4 % Platelet Count 328 TH/MM3 Mean Platelet Volume 7.6 FL Neutrophils (%) (Auto) 80.4 % Lymphocytes (%) (Auto) 13.2 % Monocytes (%) (Auto) 5.8 % Eosinophils (%) (Auto) 0.1 % Basophils (%) (Auto) 0.5 % Neutrophils # (Auto) 6.9 TH/MM3 Lymphocytes # (Auto) 1.1 TH/MM3 Monocytes # (Auto) 0.5 TH/MM3 Eosinophils # (Auto) 0.0 TH/MM3 Basophils # (Auto) 0.0 TH/MM3 CBC Comment DIFF FINAL Differential Comment Lactic Acid Level 2.5 mmol/L Magnesium Level 1.9 MG/DL Total Bilirubin 0.5 MG/DL Direct Bilirubin 0.2 MG/DL Indirect Bilirubin 0.3 MG/DL Aspartate Amino Transf (AST/SGOT) 26 U/L Alanine Aminotransferase (ALT/SGPT) 15 U/L Alkaline Phosphatase 107 U/L Total Protein 7.5 GM/DL Albumin 3.3 GM/DL Vitamin B12 Level 416 PG/ML Test 07/26/17 18:05 07/26/17 21:20 07/27/17 06:05 07/27/17 10:41 Lactic Acid Level 2.8 mmol/L 3.3 mmol/L 3.7 mmol/L White Blood Count 7.2 TH/MM3 Red Blood Count 4.31 MIL/MM3 Hemoglobin 11.7 GM/DL Hematocrit 36.1 % Mean Corpuscular Volume 83.7 FL Mean Corpuscular Hemoglobin 27.2 PG Mean Corpuscular Hemoglobin Concent 32.5 % Red Cell Distribution Width 14.4 % Platelet Count 314 TH/MM3 Mean Platelet Volume 7.8 FL Neutrophils (%) (Auto) 49.9 % Lymphocytes (%) (Auto) 39.8 % Monocytes (%) (Auto) 7.9 % Eosinophils (%) (Auto) 2.0 % Basophils (%) (Auto) 0.4 % Neutrophils # (Auto) 3.6 TH/MM3 Lymphocytes # (Auto) 2.9 TH/MM3 Monocytes # (Auto) 0.6 TH/MM3 Eosinophils # (Auto) 0.1 TH/MM3 Basophils # (Auto) 0.0 TH/MM3 CBC Comment DIFF FINAL Differential Comment Blood Urea Nitrogen 11 MG/DL Creatinine 0.99 MG/DL Random Glucose 152 MG/DL Calcium Level 8.1 MG/DL Sodium Level 142 MEQ/L Potassium Level 3.4 MEQ/L Chloride Level 111 MEQ/L Carbon Dioxide Level 23.4 MEQ/L Anion Gap 8 MEQ/L Estimat Glomerular Filtration Rate 68 ML/MIN Date/Time Source Procedure Growth Status 07/26/17 11:22 Blood Peripheral Aerobic Blood Culture - Preliminary NO GROWTH IN 1 DAY Resulted 07/26/17 11:22 Blood Peripheral Anaerobic Blood Culture - Preliminary NO GROWTH IN 1 DAY Resulted Mental Status Examination Appearance: Appropriate Consciousness: Alert Orientation: x4 Motor Activity: Normal gait Speech: Unremarkable Language: Adequate Fund of Knowledge: Adequate Attention and Concentration: Adequate Memory: Unremarkable Mood: Appropriate Affect: Appropriate Thought Process & Associations: Intact Thought Content: Appropriate Hallucination Type: None Delusion Type: None Suicidal Ideation: No Suicidal Plan: No Suicidal Intention: No Homicidal Ideation: No Homicidal Plan: No Homicidal Intention: No Insight: Adequate Judgment: Adequate Assessment & Plan Problem List: (1) Unspecified psychosis ICD Codes: F29 - Unspecified psychosis not due to a substance or known physiological condition Assessment & Plan: On psychiatric evaluation today the patient does not present any neuropsychiatric symptoms that required immediate psychiatric intervention. The patient denies depression, denies anxiety, denies amelia and psychosis. She denies suicidal and homicidal ideation, she denies visual and auditory hallucinations. Patient is logical, coherent and relevant. Oriented 3, no attention deficit, no fluctuation of consciousness, no gross cognitive impairment. The patient has history of bipolar disorder, brief psychotic disorder, mild dementia, with some psychiatric hospitalizations, no previous suicide attempt the patient is engaged in outpatient psychiatric care with Dr. Webb. She does not meet criteria for involuntary psychiatric admission at this moment. Her recent episode of altered mental status could be related with sudden withdrawal of benzodiazepine, as already happened before to the patient. But, could be also related with an underlying medical condition. Continue Risperdal 1 mg twice daily, Aricept 10 mg, Xanax 1 mg twice daily, but discontinue amitriptyline 100 mg due to his strong anticholinergic effects, including cognitive distortion, especially in patient with dementia. Psychiatric conditions to be managed by outpatient psychiatry. Consult appreciated. Assessment & Plan Estimated LOS: Daniel Maddox MD Jul 27, 2017 12:01
[2017-07-27] MEDS: INSULIN ASPART SUPPLEMENTAL SCALE SQ SCH ×3 (12:53→21:48)
--- NOTE | 2017-07-27 15:27 | HHI.PR ---
Subjective Remarks Pt without any new complaints Denies any fevers or chills Slight cough during the night No dysuria or urinary frequency Objective Vitals Vital Signs Date Time Temp Pulse Resp B/P (MAP) Pulse Ox O2 Delivery O2 Flow Rate FiO2 07/27/17 12:00 97.9 83 20 118/59 (78) 97 07/27/17 12:00 86 07/27/17 08:00 98.3 83 20 118/58 (78) 100 07/27/17 08:00 81 07/27/17 07:00 Room Air 07/27/17 04:42 99.0 88 16 102/52 (69) 100 07/27/17 03:45 86 07/27/17 00:41 98.7 90 16 118/56 (76) 99 07/26/17 23:46 88 07/26/17 21:34 98.2 82 16 115/64 (81) 100 07/26/17 20:45 Room Air 07/26/17 19:02 98.0 94 20 124/60 (81) 98 07/26/17 18:31 07/26/17 16:02 97 20 121/75 (90) 100 Room Air 07/27/17 07/27/17 07/28/17 15:00 23:00 07:00 # Voids 4 # Bowel Movements 1 Result Diagram: 07/27/1760407/27/17604 Other Results Laboratory Tests Test 07/26/17 11:22 07/26/17 12:00 07/26/17 12:55 07/26/17 13:35 Blood Urea Nitrogen 8 MG/DL Creatinine 1.19 MG/DL Random Glucose 190 MG/DL Total Protein 8.5 GM/DL Albumin 3.9 GM/DL Calcium Level 9.1 MG/DL Alkaline Phosphatase 122 U/L Aspartate Amino Transf (AST/SGOT) 30 U/L Alanine Aminotransferase (ALT/SGPT) 18 U/L Total Bilirubin 0.7 MG/DL Sodium Level 137 MEQ/L Potassium Level 4.0 MEQ/L Chloride Level 102 MEQ/L Carbon Dioxide Level 17.8 MEQ/L Anion Gap 17 MEQ/L Estimat Glomerular Filtration Rate 55 ML/MIN Lactic Acid Level 7.8 mmol/L 2.5 mmol/L Ammonia 75 MCMOL/L Total Creatine Kinase 478 U/L Creatine Kinase MB 10.8 NG/ML Creatine Kinase MB % 2.3 % Thyroid Stimulating Hormone 3rd Gen 0.565 uIU/ML Ethyl Alcohol Level LESS THAN 3 MG/DL Urine Color LIGHT-YELLOW Urine Turbidity CLEAR Urine pH 7.0 Urine Specific [place] 1.011 Urine Protein TRACE mg/dL Urine Glucose (UA) 70 mg/dL Urine Ketones 40 mg/dL Urine Occult Blood NEG Urine Nitrite NEG Urine Bilirubin NEG Urine Urobilinogen LESS THAN 2.0 MG/DL Urine Leukocyte Esterase NEG Urine RBC 2 /hpf Urine WBC 1 /hpf Microscopic Urinalysis Comment CATH-CULT NOT IND Urine Opiates Screen NEG Urine Barbiturates Screen NEG Urine Amphetamines Screen NEG Urine Benzodiazepines Screen POS Urine Cocaine Screen NEG Urine Cannabinoids Screen NEG White Blood Count 8.6 TH/MM3 Red Blood Count 4.64 MIL/MM3 Hemoglobin 12.5 GM/DL Hematocrit 38.6 % Mean Corpuscular Volume 83.2 FL Mean Corpuscular Hemoglobin 27.0 PG Mean Corpuscular Hemoglobin Concent 32.4 % Red Cell Distribution Width 14.4 % Platelet Count 328 TH/MM3 Mean Platelet Volume 7.6 FL Neutrophils (%) (Auto) 80.4 % Lymphocytes (%) (Auto) 13.2 % Monocytes (%) (Auto) 5.8 % Eosinophils (%) (Auto) 0.1 % Basophils (%) (Auto) 0.5 % Neutrophils # (Auto) 6.9 TH/MM3 Lymphocytes # (Auto) 1.1 TH/MM3 Monocytes # (Auto) 0.5 TH/MM3 Eosinophils # (Auto) 0.0 TH/MM3 Basophils # (Auto) 0.0 TH/MM3 CBC Comment DIFF FINAL Differential Comment Test 07/26/17 14:49 07/26/17 18:05 07/26/17 21:20 07/27/17 06:05 Magnesium Level 1.9 MG/DL Total Bilirubin 0.5 MG/DL Direct Bilirubin 0.2 MG/DL Indirect Bilirubin 0.3 MG/DL Aspartate Amino Transf (AST/SGOT) 26 U/L Alanine Aminotransferase (ALT/SGPT) 15 U/L Alkaline Phosphatase 107 U/L Total Protein 7.5 GM/DL Albumin 3.3 GM/DL Vitamin B12 Level 416 PG/ML Rapid Plasma Reagin Titer 1:2 Rapid Plasma Reagin REACTIVE Lactic Acid Level 2.8 mmol/L 3.3 mmol/L White Blood Count 7.2 TH/MM3 Red Blood Count 4.31 MIL/MM3 Hemoglobin 11.7 GM/DL Hematocrit 36.1 % Mean Corpuscular Volume 83.7 FL Mean Corpuscular Hemoglobin 27.2 PG Mean Corpuscular Hemoglobin Concent 32.5 % Red Cell Distribution Width 14.4 % Platelet Count 314 TH/MM3 Mean Platelet Volume 7.8 FL Neutrophils (%) (Auto) 49.9 % Lymphocytes (%) (Auto) 39.8 % Monocytes (%) (Auto) 7.9 % Eosinophils (%) (Auto) 2.0 % Basophils (%) (Auto) 0.4 % Neutrophils # (Auto) 3.6 TH/MM3 Lymphocytes # (Auto) 2.9 TH/MM3 Monocytes # (Auto) 0.6 TH/MM3 Eosinophils # (Auto) 0.1 TH/MM3 Basophils # (Auto) 0.0 TH/MM3 CBC Comment DIFF FINAL Differential Comment Blood Urea Nitrogen 11 MG/DL Creatinine 0.99 MG/DL Random Glucose 152 MG/DL Calcium Level 8.1 MG/DL Sodium Level 142 MEQ/L Potassium Level 3.4 MEQ/L Chloride Level 111 MEQ/L Carbon Dioxide Level 23.4 MEQ/L Anion Gap 8 MEQ/L Estimat Glomerular Filtration Rate 68 ML/MIN Test 07/27/17 10:41 Lactic Acid Level 3.7 mmol/L Imaging Last Impressions Head CT 07/26/17 1104 Signed Impressions: Service Date/Time: Wednesday, July 26, 2017 12:21 - CONCLUSION: Negative for an acute process Arley Gilbert MD FACR Chest X-Ray 07/26/17 1104 Signed Impressions: Service Date/Time: Wednesday, July 26, 2017 12:50 - CONCLUSION: 1. Platelike airspace disease with associated mild volume loss in the left lower lobe most consistent with atelectasis. Tank Peña MD Objective Remarks General: NAD, Awake and alert Chest: CTA Cardiac: Regular Abd: +BS, soft ND/NT Ext: No edema A/P Problem List: (1) Altered mental status ICD Codes: R41.82 - Altered mental status, unspecified Status: Acute Plan: - Patient is a pleasant 67 y/o female who was brought to the ER by her family due to altered mental status. - Per ER reported that the patient was lethargic upon arrival. Per family recent medication dose change by psychiatry, Risperdal - There is no information in the patient outpatient records - Patient alert and oriented, but not good historian as to her past medical history - Patient does not appear septic - IV Ativan prn agitation - Appreciate Psychiatry consultation - They felt that the pts AMS could have been related to sudden withdrawal of benzodiazepine vs. an underlying medical condition vs. other - Psychiatry recommended continuing Risperdal 1 mg twice daily, Aricept 10 mg, Xanax 1 mg twice daily, but discontinuing Amitriptyline due to his strong anticholinergic effects, including cognitive distortion, especially in patient with dementia. - Her lactic acid was 7.8 at admission and trended down to 2.5 a few hours following admission but this has started to trend back up. Most recent lactic acid is 3.7 - Blood cultures with NGTD - Pt has been afebrile - It would be helpful to have availability of patient's outpatient records. - I will discuss case with [facility] case management, and see if outpatient records could be obtained from current/previous providers And scanned into the [facility] EHR for future reference - Repeat lactic acid in AM - Pts RPR was noted to be positive with a titer of 1:2 - Significance of this is unclear, we will consult ID for further recommendations. - DVT prophylaxis - Supportive care - Anticipate d/c to home in 2-3 days (2) Bipolar disorder ICD Codes: F31.9 - Bipolar disorder, unspecified Status: Chronic Plan: - Appreciate input from Psychiatry (3) HTN (hypertension) ICD Codes: I10 - Essential (primary) hypertension Status: Chronic Plan: - Continue Coreg 3.125mg BID - Monitor as pts BP Is running low/normal (4) DM2 (diabetes mellitus, type 2) ICD Codes: E11.9 - Type 2 diabetes mellitus without complications Status: Chronic Plan: - Hold metformin - [facility] Assessment and Plan Patient examined. Assessment and plan formulated with Juany Keller PA-C. I agree with the above. Problem Qualifiers (1) Altered mental status: Qualified Codes: R41.82 - Altered mental status, unspecified (2) Bipolar disorder: (3) HTN (hypertension): Qualified Codes: I10 - Essential (primary) hypertension (4) DM2 (diabetes mellitus, type 2): Qualified Codes: E11.8 - Type 2 diabetes mellitus with unspecified complications Juany Keller Jul 27, 2017 15:27 Hal Nuno DO Jul 30, 2017 23:16
--- NOTE | 2017-07-27 20:41 | MB ---
cc: Go Hernandez MD DATE: 07/27/2017 REQUESTING PHYSICIAN: Hal Nuno DO CHIEF COMPLAINT: Altered mental status. Positive RPR. HISTORY OF PRESENT ILLNESS: This is a 67-year-old white female who was admitted to the hospital after presenting to the emergency department with altered mental status. The patient is noted to have a history of bipolar disorder. She apparently was agitated and combative when she presented to the emergency department. She has a history of treatment with medications for bipolar disorder. The patient had workup including testing for syphilis. Her came back positive and RPR came back positive with a titer of 1:2. The patient is currently awake and alert. She is able to answer my questions without difficulty. When asked if her thinking is altered, she states that she is feeling well right now, but she tends to be forgetful. She is calm and does not appear to be agitated in anyway currently. Her daughter is at bedside. The patient had a temperature of 100.9 degrees when she was admitted. Her white blood cell count was normal. Lactic acid level was elevated at 2.8. The patient reports that she was treated for syphilis when she was approximately 42 years ago. She has not had measure of the blood to check for PVD of syphilis since that time. She did have a lumbar puncture in 06/2008, and at that time, the CSF VDRL was negative. The spinal fluid was unremarkable and showed no white cells. The patient recalls being treated with intramuscular penicillin when the titer was positive when she was diagnosed 42 years ago. The patient denies skin rashes. She denies numbness of the extremities. She denies visual problems. She denies any problems with coordination. PAST MEDICAL HISTORY: Bipolar disorder, hypertension, diabetes mellitus, seizure disorder, tubal ligation, history of psychosis. ALLERGIES: PENICILLIN. MEDICATIONS: Insulin, Lipitor, Coreg, Aricept, Xanax p.r.n. SOCIAL HISTORY: No alcohol. No tobacco. No illicit drugs. The patient is . FAMILY HISTORY: Noncontributory. REVIEW OF SYSTEMS: CONSTITUTIONAL: Denies chills or fevers. HEAD, EARS, EYES, NOSE AND THROAT: Denies head pain. Denies diplopia or visual blurring. Denies nasal drainage. Denies difficulty swallowing or soreness of the throat. CARDIOVASCULAR: Denies palpitation or chest pain. RESPIRATORY: Denies cough or shortness of breath. GASTROINTESTINAL: Denies nausea, vomiting, or abdominal pain. GENITOURINARY: Denies urgency, frequency, dysuria or bladder incontinence. HEMATOPOIETIC: Denies easy bruising or bleeding. INTEGUMENTARY: Denies skin rash or itching. NEUROLOGIC: Denies incoordination or gait disturbances. PSYCHIATRIC: Notes episodes of agitation. PHYSICAL EXAMINATION: GENERAL: This is a slender female who is in no acute distress. She is awake, alert and oriented. VITAL SIGNS: Include temperature of 98.5, BP 134/65, respirations 20, heart rate 85. HEENT: The head is atraumatic. Extraocular movements grossly intact. Pupils reactive to light. No icterus. Oropharynx, moist mucosa without lesions. NECK: Supple without adenopathy or swelling. LUNGS: Clear breath sounds, bilateral. HEART: Regular S1 and S2. No murmurs, rubs or gallops. ABDOMEN: Bowel sounds present, soft, no tenderness appreciated. RECTAL: Not performed. EXTREMITIES: No clubbing, cyanosis or edema. SKIN: No rash. NEUROLOGIC: No gross focal finding. The patient is awake and alert. PSYCHIATRIC: The patient is calm and cooperative. IMPRESSION: Positive syphilis test. The patient has had history of treated syphilis in the past and the test merely may reflect that. Her mental status is currently not significantly altered and the titer of syphilis is low at 1:2. At this point, I do not think it is necessary to do a lumbar puncture, but I think the titer of syphilis should be monitored with RPR testing. I suggest repeating the test in 6 weeks to see if the titer becomes elevated. Another option would be to give intramuscular penicillin dose. Because of the low titer, I do not see the need to imminently treat, but can follow the titer. If it is decided that treatment is desirable, then she would need to be treated with doxycycline since SHE IS ALLERGIC TO PENICILLIN, and the alternative treatment would be 100 mg p.o. twice a day for 4 weeks and titer followup to check for clearance. Thank you for this consultation. MD ANNMARIE Atkinson/DAE , 07:51 PM , 08:39 PM
[2017-07-27] MEDS ORDERED: AMITRIPTYLINE HCL 100 MG TAB PO SCH (21:00)
[2017-07-27] MEDS: ATORVASTATIN 80 MG TAB PO SCH (21:32)
[2017-07-27] MEDS: DONEPEZIL HCL 5 MG TAB PO SCH (21:32)
[2017-07-27] MEDS: risperiDONE 1 MG TAB PO SCH (21:32)
[2017-07-28 00:05] VITALS: PULSE 92
[2017-07-28 04:03] VITALS: PULSE 103
[2017-07-28 04:12] VITALS: BP 178/98; PULSE 100; RESP 16; TEMP 99.1; O2SAT 98
[2017-07-28] MEDS: CARVEDILOL 3.125 MG TAB PO SCH (05:23)
[2017-07-28 08:00] VITALS: BP 182/100; PULSE 60; PULSE 92; PULSE 93; RESP 18; TEMP 98.3; O2SAT 97
[2017-07-28] MEDS: INSULIN ASPART SUPPLEMENTAL SCALE SQ SCH ×2 (08:00→12:00)
[2017-07-28] MEDS ORDERED: cloNIDine HCL 0.1 MG TAB PO PRN (08:15)
[2017-07-28] MEDS: SODIUM CHLORIDE 0.9% FLUSH 10 ML FLUSH IV FLUSH SCH (09:00)
[2017-07-28] MEDS: risperiDONE 1 MG TAB PO SCH (09:00)
[2017-07-28] MEDS ORDERED: CARVEDILOL 3.125 MG TAB PO ONE (10:15)
[2017-07-28] MEDS ORDERED: LORazepam 2 MG/ML VIAL IV PUSH PRN ×5 (11:00→11:45)
--- NOTE | 2017-07-28 11:21 | HHI.PR ---
Subjective Remarks Patient evaluated with daughter at bedside Patient delirious unable to having meaningful conversation unable to follow commands Objective Vitals Vital Signs Date Time Temp Pulse Resp B/P (MAP) Pulse Ox O2 Delivery O2 Flow Rate FiO2 07/28/17 08:00 98.3 92 18 182/100 (127) 97 07/28/17 04:12 99.1 100 16 178/98 (124) 98 07/28/17 04:03 103 07/28/17 00:05 92 07/27/17 23:45 98.6 97 16 169/97 (121) 100 07/27/17 20:52 98.8 101 16 169/83 (111) 100 07/27/17 20:30 Room Air 07/27/17 20:26 93 07/27/17 16:00 98.5 85 20 134/65 (88) 99 07/27/17 12:00 97.9 83 20 118/59 (78) 97 07/27/17 12:00 86 Result Diagram: 07/27/17 0605 07/27/17 06 Other Results Laboratory Tests Test 07/26/17 11:22 07/26/17 12:00 07/26/17 12:55 07/26/17 13:35 Blood Urea Nitrogen 8 MG/DL Creatinine 1.19 MG/DL Random Glucose 190 MG/DL Total Protein 8.5 GM/DL Albumin 3.9 GM/DL Calcium Level 9.1 MG/DL Alkaline Phosphatase 122 U/L Aspartate Amino Transf (AST/SGOT) 30 U/L Alanine Aminotransferase (ALT/SGPT) 18 U/L Total Bilirubin 0.7 MG/DL Sodium Level 137 MEQ/L Potassium Level 4.0 MEQ/L Chloride Level 102 MEQ/L Carbon Dioxide Level 17.8 MEQ/L Anion Gap 17 MEQ/L Estimat Glomerular Filtration Rate 55 ML/MIN Lactic Acid Level 7.8 mmol/L 2.5 mmol/L Ammonia 75 MCMOL/L Total Creatine Kinase 478 U/L Creatine Kinase MB 10.8 NG/ML Creatine Kinase MB % 2.3 % Thyroid Stimulating Hormone 3rd Gen 0.565 uIU/ML Ethyl Alcohol Level LESS THAN 3 MG/DL Urine Color LIGHT-YELLOW Urine Turbidity CLEAR Urine pH 7.0 Urine Specific [place] 1.011 Urine Protein TRACE mg/dL Urine Glucose (UA) 70 mg/dL Urine Ketones 40 mg/dL Urine Occult Blood NEG Urine Nitrite NEG Urine Bilirubin NEG Urine Urobilinogen LESS THAN 2.0 MG/DL Urine Leukocyte Esterase NEG Urine RBC 2 /hpf Urine WBC 1 /hpf Microscopic Urinalysis Comment CATH-CULT NOT IND Urine Opiates Screen NEG Urine Barbiturates Screen NEG Urine Amphetamines Screen NEG Urine Benzodiazepines Screen POS Urine Cocaine Screen NEG Urine Cannabinoids Screen NEG White Blood Count 8.6 TH/MM3 Red Blood Count 4.64 MIL/MM3 Hemoglobin 12.5 GM/DL Hematocrit 38.6 % Mean Corpuscular Volume 83.2 FL Mean Corpuscular Hemoglobin 27.0 PG Mean Corpuscular Hemoglobin Concent 32.4 % Red Cell Distribution Width 14.4 % Platelet Count 328 TH/MM3 Mean Platelet Volume 7.6 FL Neutrophils (%) (Auto) 80.4 % Lymphocytes (%) (Auto) 13.2 % Monocytes (%) (Auto) 5.8 % Eosinophils (%) (Auto) 0.1 % Basophils (%) (Auto) 0.5 % Neutrophils # (Auto) 6.9 TH/MM3 Lymphocytes # (Auto) 1.1 TH/MM3 Monocytes # (Auto) 0.5 TH/MM3 Eosinophils # (Auto) 0.0 TH/MM3 Basophils # (Auto) 0.0 TH/MM3 CBC Comment DIFF FINAL Differential Comment Test 07/26/17 14:49 07/26/17 18:05 07/26/17 21:20 07/27/17 06:05 Magnesium Level 1.9 MG/DL Total Bilirubin 0.5 MG/DL Direct Bilirubin 0.2 MG/DL Indirect Bilirubin 0.3 MG/DL Aspartate Amino Transf (AST/SGOT) 26 U/L Alanine Aminotransferase (ALT/SGPT) 15 U/L Alkaline Phosphatase 107 U/L Total Protein 7.5 GM/DL Albumin 3.3 GM/DL Vitamin B12 Level 416 PG/ML Rapid Plasma Reagin Titer 1:2 Rapid Plasma Reagin REACTIVE Lactic Acid Level 2.8 mmol/L 3.3 mmol/L White Blood Count 7.2 TH/MM3 Red Blood Count 4.31 MIL/MM3 Hemoglobin 11.7 GM/DL Hematocrit 36.1 % Mean Corpuscular Volume 83.7 FL Mean Corpuscular Hemoglobin 27.2 PG Mean Corpuscular Hemoglobin Concent 32.5 % Red Cell Distribution Width 14.4 % Platelet Count 314 TH/MM3 Mean Platelet Volume 7.8 FL Neutrophils (%) (Auto) 49.9 % Lymphocytes (%) (Auto) 39.8 % Monocytes (%) (Auto) 7.9 % Eosinophils (%) (Auto) 2.0 % Basophils (%) (Auto) 0.4 % Neutrophils # (Auto) 3.6 TH/MM3 Lymphocytes # (Auto) 2.9 TH/MM3 Monocytes # (Auto) 0.6 TH/MM3 Eosinophils # (Auto) 0.1 TH/MM3 Basophils # (Auto) 0.0 TH/MM3 CBC Comment DIFF FINAL Differential Comment Blood Urea Nitrogen 11 MG/DL Creatinine 0.99 MG/DL Random Glucose 152 MG/DL Calcium Level 8.1 MG/DL Sodium Level 142 MEQ/L Potassium Level 3.4 MEQ/L Chloride Level 111 MEQ/L Carbon Dioxide Level 23.4 MEQ/L Anion Gap 8 MEQ/L Estimat Glomerular Filtration Rate 68 ML/MIN Test 07/27/17 10:41 07/28/17 06:40 Lactic Acid Level 3.7 mmol/L 0.7 mmol/L Imaging Last Impressions Head CT 07/26/17 1104 Signed Impressions: Service Date/Time: Wednesday, July 26, 2017 12:21 - CONCLUSION: Negative for an acute process Arley Gilbert MD FACR Chest X-Ray 07/26/17 1104 Signed Impressions: Service Date/Time: Wednesday, July 26, 2017 12:50 - CONCLUSION: 1. Platelike airspace disease with associated mild volume loss in the left lower lobe most consistent with atelectasis. Tank Peña MD Objective Remarks General: disoriented x3, unable to have conversation or follow commands Chest: CTA Cardiac: Regular Abd: +BS, soft ND/NT Ext: No edema A/P Problem List: (1) Altered mental status ICD Codes: R41.82 - Altered mental status, unspecified Status: Acute Plan: - Patient is a pleasant 67 y/o female who was brought to the ER by her family due to altered mental status. - Per ER reported that the patient was lethargic upon arrival. Per family recent medication dose change by psychiatry, Risperdal - There is no information in the patient outpatient records - Patient alert and oriented, but not good historian as to her past medical history - Patient does not appear septic - IV Ativan prn agitation - Appreciate Psychiatry consultation - They felt that the pts AMS could have been related to sudden withdrawal of benzodiazepine vs. an underlying medical condition vs. other - Psychiatry recommended continuing Risperdal 1 mg twice daily, Aricept 10 mg, Xanax 1 mg twice daily, but discontinuing Amitriptyline due to his strong anticholinergic effects, including cognitive distortion, especially in patient with dementia. - Her lactic acid was 7.8 at admission and trended down to 2.5 a few hours following admission but this has started to trend back up. Most recent lactic acid is 3.7 - Blood cultures with NGTD - Pt has been afebrile - It would be helpful to have availability of patient's outpatient records. - I will discuss case with [facility] case management, and see if outpatient records could be obtained from current/previous providers And scanned into the [facility] EHR for future reference - Repeat lactic acid in AM - Pts RPR was noted to be positive with a titer of 1:2 - consult ID recommends: titer of syphilis should be monitored with RPR testing. Repeat the test in 6 weeks to see if the titer becomes elevated. - DVT prophylaxis - Supportive care 07/28 Patient received Risperidone last night 2100. This AM patient noted to be acutely delusional. Patient also evaluated by Dr. Odom who has placed patient under backer act. Plan to complete EEG then transfer patient to inpatient psych for close monitoring and medication adjustment - EEG requested (2) Bipolar disorder ICD Codes: F31.9 - Bipolar disorder, unspecified Status: Chronic Plan: - Appreciate input from Psychiatry (3) HTN (hypertension) ICD Codes: I10 - Essential (primary) hypertension Status: Chronic Plan: - patient BP noted to be elevated patient also agitated, elevated BP possibly related to agitation - Increase Coreg to 6.235 mg BID - add Clonidine 0.1 mg PO Q6H as needed for HTN (4) DM2 (diabetes mellitus, type 2) ICD Codes: E11.9 - Type 2 diabetes mellitus without complications Status: Chronic Plan: - Hold metformin - [facility] Assessment and Plan Patient examined. Assessment and plan formulated with Kanika Merino PA-C. I agree with the above. Problem Qualifiers (1) Altered mental status: Qualified Codes: R41.82 - Altered mental status, unspecified (2) Bipolar disorder: (3) HTN (hypertension): Qualified Codes: I10 - Essential (primary) hypertension (4) DM2 (diabetes mellitus, type 2): Qualified Codes: E11.8 - Type 2 diabetes mellitus with unspecified complications Kanika Merino Jul 28, 2017 11:21 Hal Nuno DO Jul 30, 2017 23:17
[2017-07-28] MEDS ORDERED: CARV6.25 PO (11:31)
[2017-07-28 11:39] LABS: AUTOMATED NEUTROPHIL # 3.4 TH/MM3 (1.8-7.7); BASOPHIL # 0.1 TH/MM3 (0-0.2); BASOPHIL % 1.3 % (0.0-2.0); EOSINOPHIL # 0.1 TH/MM3 (0-0.4); EOSINOPHIL % 1.8 % (0.0-4.0); HEMOGLOBIN 12.8 GM/DL (11.6-15.3); LYMPH % 31.1 % (9.0-44.0); LYMPHOCYTE # 1.8 TH/MM3 (1.0-4.8); MEAN CELL VOLUME 83.8 FL (80.0-100.0); MEAN CORPUSCULAR HEMOGLOBIN 27.4 PG (27.0-34.0); MEAN CORPUSCULAR HGB CONC 32.7 % (32.0-36.0); MONO % 6.7 % (0.0-8.0); MONOCYTE # 0.4 TH/MM3 (0-0.9); NEUT % 59.1 % (16.0-70.0); PLATELET COUNT 319 TH/MM3 (150-450); RED BLOOD COUNT 4.66 MIL/MM3 (4.00-5.30); RED CELL DISTRIBUTION WIDTH 14.3 % (11.6-17.2); WHITE BLOOD COUNT 5.8 TH/MM3 (4.0-11.0)
[2017-07-28] MEDS ORDERED: HALOPERIDOL LACTATE 5 MG/ML AMP IM PRN (11:45)
[2017-07-28] MEDS ORDERED: FLUMAZENIL 0.5 MG/5 ML VIAL IV PUSH PRN (11:45)
[2017-07-28] MEDS ORDERED: LORazepam 1 MG TAB PO PRN (11:45)
[2017-07-28] MEDS ORDERED: LORazepam 2 MG TAB PO PRN (11:45)
--- NOTE | 2017-07-28 11:53 | HHI.PYPN ---
Subjective Remarks Patient seen for reevaluation today, patient is accompanied by her bhaktihier. Different than yesterday to day the patient is very agitated, no following verbal commands, disorganized, unable to focus, unable to sustain a conversation , internally preoccupied and talking with unexisting people in the room. Her daughter manifest this is the first time she sees her mother like this and " this all started after changes indications recently by Dr. Webb". she believes current presentation is related with newly prescribed Risperdal, but at he same time she is unable to confirm if the patient's benzos were discontinued. Review of Systems Psychiatric: COMPLAINS OF: Hallucinations, Delusions Mental Status Examination Appearance: Appropriate Consciousness: Alert Orientation: Person Motor Activity: Normal gait Speech: Unremarkable Language: Perseveration Fund of Knowledge: Inadequate Attention and Concentration: Adequate Memory: Impaired Mood: Irritable Affect: Irritable Thought Process & Associations: Loose associations, Disorganized Thought Content: Appropriate Hallucination Type: None, Visual Suicidal Ideation: No Suicidal Plan: No Suicidal Intention: No Homicidal Ideation: No Homicidal Plan: No Homicidal Intention: No Insight: Adequate Judgment: Adequate Results Labs Test 07/28/17 06:40 White Blood Count 5.8 TH/MM3 Red Blood Count 4.66 MIL/MM3 Hemoglobin 12.8 GM/DL Hematocrit 39.0 % Mean Corpuscular Volume 83.8 FL Mean Corpuscular Hemoglobin 27.4 PG Mean Corpuscular Hemoglobin Concent 32.7 % Red Cell Distribution Width 14.3 % Platelet Count 319 TH/MM3 Mean Platelet Volume 8.0 FL Neutrophils (%) (Auto) 59.1 % Lymphocytes (%) (Auto) 31.1 % Monocytes (%) (Auto) 6.7 % Eosinophils (%) (Auto) 1.8 % Basophils (%) (Auto) 1.3 % Neutrophils # (Auto) 3.4 TH/MM3 Lymphocytes # (Auto) 1.8 TH/MM3 Monocytes # (Auto) 0.4 TH/MM3 Eosinophils # (Auto) 0.1 TH/MM3 Basophils # (Auto) 0.1 TH/MM3 CBC Comment DIFF FINAL Differential Comment Lactic Acid Level 0.7 mmol/L Date/Time Source Procedure Growth Status 07/26/17 11:22 Blood Peripheral Aerobic Blood Culture - Preliminary NO GROWTH IN 2 DAYS Resulted 07/26/17 11:22 Blood Peripheral Anaerobic Blood Culture - Preliminary NO GROWTH IN 2 DAYS Resulted Vitals/IOs Vital Signs Date Time Temp Pulse Resp B/P (MAP) Pulse Ox O2 Delivery O2 Flow Rate FiO2 07/28/17 08:00 98.3 92 18 182/100 (127) 97 07/27/17 20:30 Room Air Intake and Output 07/28/17 07/28/17 07/29/17 08:00 16:00 00:00 Intake Total 240 ml Balance 240 ml Assessment & Plan Problem List: (1) Unspecified psychosis ICD Codes: F29 - Unspecified psychosis not due to a substance or known physiological condition Assessment & Plan: Patient today is found to be hyperactive, with marked psychomotor agitation, disorganized behavior and speech, internally stimulation and having active visual hallucinations. Will start CIWA protocol since sedative-hypnotic withdrawal cold account for current psychotic symptoms. discontinue Risperdal 1 mg bid and start Seroquel 25 bid. order Haldol 2 mg im q /6h PRN severe agitation. QTc is 423. order EEG to rule an non convulsive epileptogenic focus. Patient was Hodgson acted to be admitted in psychiatry if EEG is negative to treat persistent psychosis and agitation. Assessment & Plan Estimated LOS: days Justification for Cont. Inpt. potential admission in psychiatry Daniel Odom MD Jul 28, 2017 11:53
[2017-07-28 12:00] VITALS: BP 167/94; PULSE 100; PULSE 94; RESP 18; TEMP 97.8; O2SAT 99
[2017-07-28] MEDS ORDERED: QUEtiapine FUMARATE 25 MG TAB PO SCH (12:00)
[2017-07-28 13:20] LABS: ALBUMIN 3.5 GM/DL (3.4-5.0); ALT (GPT) 21 U/L (10-53); AST (GOT) 28 U/L (15-37); BICARBONATE 25.2 MEQ/L (21.0-32.0); BLOOD UREA NITROGEN 5 MG/DL (7-18); CALCIUM 8.7 MG/DL (8.5-10.1); CHLORIDE 104 MEQ/L (98-107); CREATININE 0.74 MG/DL (0.50-1.00); GLOMERULAR FILTRATION RATE 95 ML/MIN (>89); GLUCOSE,RANDOM 135 MG/DL (74-106); SODIUM (NA) 139 MEQ/L (136-145)
[2017-07-28] MEDS ORDERED: 1/2 NS + KCL 20 MEQ INJ 1,000 ML IV SCH (13:30)
[2017-07-28] MEDS ORDERED: POTASSIUM CHLORIDE 25 MEQ EFFERVESCENT TAB PO ONE (13:30)
--- NOTE | 2017-07-28 13:42 | MG ---
cc: Ronald Emerson MD DATE OF STUDY: 07/28/2017 EEG NUMBER: [id number] DATE OF : 1950 CLINICAL HISTORY: A 67-year-old female with a history of agitation and mood changes. FINDINGS: Well-formed alpha activity, 8-11 Hz, 10-40 microvolts. Low-amplitude beta in the frontal channels. Good anterior to posterior gradient. Occasional frontal myogenic artifact noted. Reasonably good driving with photic stimulation. Single lead EKG showing sinus rhythm. INTERPRETATION: Normal awake EEG. Clinical correlation. Ronald Emerson MD MG/SB , 01:21 PM , 01:41 PM
[2017-07-28 13:46] LABS: ALKALINE PHOSPHATASE 104 U/L (45-117); TOTAL BILIRUBIN ADULT 0.5 MG/DL (0.2-1.0); TOTAL PROTEIN 7.9 GM/DL (6.4-8.2)
[2017-07-28 13:48] LABS: FOLATE GREATER THAN 20.0 NG/ML (3.1-17.5)
--- NOTE | 2017-07-28 14:12 | HHI.DCPOC ---
Discharge Care Plan Diagnosis: (1) Acute psychosis (2) Bipolar disorder (3) HTN (hypertension) (4) DM2 (diabetes mellitus, type 2) Goals to Promote Your Health * To prevent worsening of your condition and complications * To maintain your health at the optimal level Directions to Meet Your Goals Take your medications as prescribed Follow your dietary instruction Follow activity as directed Keep your appointments as scheduled Take your immunizations and boosters as scheduled If your symptoms worsen call your PCP, if no PCP go to Urgent Care Center or Emergency Room Smoking is Dangerous to Your Health. Avoid second hand smoke Call the 24-hour hour crisis hotline for domestic abuse at Kanika Merino Jul 28, 2017 14:12 Hal Nuno DO Jul 30, 2017 23:18
--- NOTE | 2017-07-28 14:21 | HHI.DS ---
Discharge Summary Admission Date Jul 26, 2017 at 13:29 Discharge Date: Jul 28, 2017 Admitting Diagnosis SIRS, lactic acidosis, hyperammonemia (1) Altered mental status Diagnosis: Principal ICD Codes: R41.82 - Altered mental status, unspecified Status: Acute (2) Bipolar disorder Diagnosis: Principal ICD Codes: F31.9 - Bipolar disorder, unspecified Status: Chronic (3) HTN (hypertension) Diagnosis: Secondary ICD Codes: I10 - Essential (primary) hypertension Status: Chronic (4) DM2 (diabetes mellitus, type 2) Diagnosis: Secondary ICD Codes: E11.9 - Type 2 diabetes mellitus without complications Status: Chronic Consultants Dr. Odom, psychiatry Dr. Hernandez, ID Procedures none Brief History Patient is a pleasant and cooperative 67-year-old female who was brought to the ER by her family due to altered mental status. The family reports that the patient recently had a change in her medications. The patient has a history of bipolar disorder. Patient sees a private psychiatrist, . Per family, patient's Risperdal was recently increased, and the patient has become lethargic over the last few days to the point where she was rarely getting out of bed and difficult to rouse. I have reviewed the patient's outpatient records in the [facility] EHR . Unfortunately, it appears that the patient is likely new to [facility] and there are no records for me to review in the [facility] EHR. I have reviewed the patient's previous records at [place]. Patient was most recently admitted under Hodgson act for psychosis September 2016. At that time patient was attended by psychiatry, Dr. Ric Anna. Patient now appears much different from the ER's report of Ms. Alves clinical status upon arrival. Patient is able to answer questions appropriately , but not a wonderful historian. Patient appears nontoxic, and the physical examination is unremarkable. Specifically, patient does NOT appear septic. Patient actually has no acute medical complaints at this time. I will NOT resume patient's reported psychiatric medications at this time, since it appears she may have been overmedicated. I have placed consultation with psychiatry. I await with interest psychiatry consultation. Patient denies fever or chills. Patient denies cough, shortness of breath, or wheezing. Patient denies sick contacts or recent travel. Patient denies complaint of neck stiffness or headache. CBC/BMP: 07/28/17 0640 07/28/17 1240 Significant Findings Laboratory Tests Test 07/26/17 11:22 07/26/17 12:00 07/26/17 12:55 07/26/17 13:35 Creatinine 1.19 MG/DL (0.50-1.00) Random Glucose 190 MG/DL (74-106) Total Protein 8.5 GM/DL (6.4-8.2) Alkaline Phosphatase 122 U/L (45-117) Carbon Dioxide Level 17.8 MEQ/L (21.0-32.0) Anion Gap 17 MEQ/L (5-15) Estimat Glomerular Filtration Rate 55 ML/MIN (>89) Lactic Acid Level 7.8 mmol/L (0.4-2.0) 2.5 mmol/L (0.4-2.0) Ammonia 75 MCMOL/L (11-32) Total Creatine Kinase 478 U/L (26-192) Creatine Kinase MB 10.8 NG/ML (0.5-3.6) Urine Glucose (UA) 70 mg/dL (NEG) Urine Ketones 40 mg/dL (NEG) Urine Benzodiazepines Screen POS (NEG) Neutrophils (%) (Auto) 80.4 % (16.0-70.0) Test 07/26/17 14:49 07/26/17 18:05 07/26/17 21:20 07/27/17 06:05 Albumin 3.3 GM/DL (3.4-5.0) Rapid Plasma Reagin Titer 1:2 (NON-REACTVE) Rapid Plasma Reagin REACTIVE (NON-REACTVE) Lactic Acid Level 2.8 mmol/L (0.4-2.0) 3.3 mmol/L (0.4-2.0) Random Glucose 152 MG/DL (74-106) Calcium Level 8.1 MG/DL (8.5-10.1) Potassium Level 3.4 MEQ/L (3.5-5.1) Chloride Level 111 MEQ/L (98-107) Estimat Glomerular Filtration Rate 68 ML/MIN (>89) Test 07/27/17 10:41 07/28/17 06:40 07/28/17 12:40 Lactic Acid Level 3.7 mmol/L (0.4-2.0) Blood Urea Nitrogen 5 MG/DL (7-18) Random Glucose 135 MG/DL (74-106) Potassium Level 3.3 MEQ/L (3.5-5.1) Ammonia 10 MCMOL/L (11-32) Folate GREATER THAN 20.0 NG/ML Imaging Last Impressions Chest X-Ray 07/27/17 1010 Signed Impressions: Service Date/Time: Thursday, July 27, 2017 10:03 - CONCLUSION: Stable chest x-ray with atelectasis versus scar at the left lung base. Otherwise, no acute cardiopulmonary abnormality is identified. Ric Figueredo MD Head CT 07/26/17 1104 Signed Impressions: Service Date/Time: Wednesday, July 26, 2017 12:21 - CONCLUSION: Negative for an acute process Arley Gilbert MD FACR PE at Discharge General: disoriented x3, unable to have conversation or follow commands Chest: CTA Cardiac: Regular Abd: +BS, soft ND/NT Ext: No edema Hospital Course Altered mental status - Patient is a pleasant 67 y/o female who was brought to the ER by her family due to altered mental status. - Per ER reported that the patient was lethargic upon arrival. Per family recent medication dose change by psychiatry, Risperdal - There is no information in the patient outpatient records - Patient alert and oriented, but not good historian as to her past medical history - Patient does not appear septic - IV Ativan prn agitation - Appreciate Psychiatry consultation - They felt that the pts AMS could have been related to sudden withdrawal of benzodiazepine vs. an underlying medical condition vs. other - Psychiatry recommended continuing Risperdal 1 mg twice daily, Aricept 10 mg, Xanax 1 mg twice daily, but discontinuing Amitriptyline due to his strong anticholinergic effects, including cognitive distortion, especially in patient with dementia. - Her lactic acid was 7.8 at admission and trended down to 2.5 a few hours following admission but this has started to trend back up. Most recent lactic acid is 3.7 - Blood cultures with NGTD - Pt has been afebrile - It would be helpful to have availability of patient's outpatient records. - I will discuss case with [facility] case management, and see if outpatient records could be obtained from current/previous providers And scanned into the [facility] EHR for future reference - Repeat lactic acid in AM - Pts RPR was noted to be positive with a titer of 1:2 - consult ID recommends: titer of syphilis should be monitored with RPR testing. Repeat the test in 6 weeks to see if the titer becomes elevated. - DVT prophylaxis - Supportive care 07/28 Patient received Risperidone last night 2100. This AM patient noted to be acutely delusional. Patient also evaluated by Dr. Odom who has placed patient under backer act. EEG completed and normal. Patient's family request IV fluids as patient has not eaten well today. Will give IVF x 3 hours then transfer patient to inpatient psych for close monitoring and medication adjustment Bipolar disorder - Appreciate input from Psychiatry HTN (hypertension) - patient BP noted to be elevated patient also agitated, elevated BP possibly related to agitation - Increase Coreg to 6.235 mg BID - add Clonidine 0.1 mg PO Q6H as needed for HTN DM2 (diabetes mellitus, type 2) - Hold metformin, resume at time of DC - SSI Pt Condition on Discharge: Stable Discharge Disposition: Disc to Psych Care Fac Discharge Instructions DIET: Follow Instructions for: As Tolerated, No Restrictions Activities you can perform: Regular-No Restrictions Follow up Referrals: PCP Follow-up - [address] Esteves Psychiatry Adult - Today New Medications: Carvedilol (Coreg) 6.25 Mg Tab 6.25 MG PO BID for blood pressure, #60 TAB 0 Refills Continued Medications: Alprazolam (Xanax) 1 Mg Tab 1 MG PO DAILY PRN for ANXIETY, TAB 0 Refills Atorvastatin (Atorvastatin) 80 Mg Tab 80 MG PO HS for Cholesterol Management, TAB 0 Refills Donepezil (Donepezil) 10 Mg Tab 10 MG PO HS for Dementia, #30 TAB 0 Refills Ergocalciferol (Ergocalciferol) 50,000 Unit Cap 77304 UNITS PO Q7D for Nutritional Supplement, #30 CAP 0 Refills Folic Acid (Folic Acid) 1 Mg Tablet 1 MG PO DAILY Metformin (Metformin) 1,000 Mg Tab 1000 MG PO BIDPC for Blood Sugar Management, #60 TAB 0 Refills With meals Discontinued Medications: Amitriptyline (Amitriptyline) 100 Mg Tab 100 MG PO HS for Control Depression, TAB 0 Refills Carvedilol (Coreg) 3.125 Mg Tab 3.125 MG PO BID, #60 TAB 0 Refills Naproxen (Naproxen) 500 Mg Tab 500 MG PO BID PRN for PAIN SCALE 1 TO 10, TAB 0 Refills Risperidone (Risperdal) 1 Mg Tab 1 MG PO BID, #30 TAB 0 Refills Additional Information Patient examined. Assessment and plan formulated with Kanika Merino PA-C. I agree with the above. Kanika Merino Jul 28, 2017 14:21 Hal Nuno DO Jul 30, 2017 23:17
[2017-07-28 16:00] VITALS: BP 150/95; PULSE 108; PULSE 97; RESP 18; TEMP 98.4; O2SAT 100
[2017-07-28] MEDS ORDERED: CARVEDILOL 6.25 MG TAB PO SCH (21:00)
[2017-07-29] MEDS ORDERED: CARV3.125 PO (17:45)
== END 2017-07-28 18:35 | DRG 885 ==
LOC: NEPC 10:41 → NEDA 13:29 → NEDH 15:38 → N04A 18:29
PROVIDERS: ADMIT Hospitalist; ATTEND Hospitalist
DX: F22 Delusional disorders (principal); E87.2 Acidosis; E72.20 Disorder of urea cycle metabolism, unspecified; Z78.1 Physical restraint status; A53.0 Latent syphilis, unspecified as early or late; F03.90 Unspecified dementia, unspecified severity, without behavioral disturbance, psychotic disturbance, mood disturbance, and anxiety; F29 Unspecified psychosis not due to a substance or known physiological condition; E11.9 Type 2 diabetes mellitus without complications; R32 Unspecified urinary incontinence; E78.00 Pure hypercholesterolemia, unspecified; K21.9 Gastro-esophageal reflux disease without esophagitis; I10 Essential (primary) hypertension; G40.909 Epilepsy, unspecified, not intractable, without status epilepticus; H40.9 Unspecified glaucoma; F31.9 Bipolar disorder, unspecified; Z79.84 Long term (current) use of oral hypoglycemic drugs; Z88.0 Allergy status to penicillin
CPT/HCPCS: 70450; 71045; 71046; 80048; 80053; 80076; 80307; 81001; 82140; 82550; 82552; 82607; 82746; 83605; 83735; 84425; 84443; 85025; 86592; 86593; 87040; 93005; 95819; 96361; 96374; J0692; J1815; J2060; J3370; J7030; J7050; P9612

== ENCOUNTER 2017-07-28 16:43 | Inpatient (IN) | payer MEDICARE ==
[~2017-07-28] VITALS: Ht 162.6 cm; Wt 65.7 kg
[~2017-07-28 16:43] MED LIST changes: -ALPR.5 PO; +AMIT100T2 PO; -AMIT150T PO; -AMIT75TA2 PO; +ATOR80TA45 PO; +CARV6.25 PO; +NAPR500T2 PO; +XANA1TAB2 PO
[2017-07-28 18:45] VITALS: BP 136/67; PULSE 101; RESP 18; TEMP 99.5; O2SAT 98
[2017-07-28] MEDS ORDERED: DEXTROSE 50% IN WATER 50 ML VIAL(D50) IV PUSH PRN (19:30)
[2017-07-28] MEDS ORDERED: LORazepam 2 MG TAB PO PRN (19:30)
[2017-07-28] MEDS ORDERED: FLUMAZENIL 0.5 MG/5 ML VIAL IV PUSH PRN (19:30)
[2017-07-28] MEDS ORDERED: ALUMINUM/MAGNESIUM/SIMETH 30 ML CUP PO PRN (19:30)
[2017-07-28] MEDS ORDERED: GLUCAGON 1 MG/ML VIAL OTHER PRN (19:30)
[2017-07-28] MEDS ORDERED: ACETAMINOPHEN 325 MG TAB PO PRN (19:30)
[2017-07-28] MEDS ORDERED: MAGNESIUM HYDROXIDE SUSP 30 ML CUP PO PRN (19:30)
[2017-07-28] MEDS ORDERED: LORazepam 2 MG/ML VIAL IV PUSH PRN ×4 (19:30)
[2017-07-28] MEDS ORDERED: LORazepam 1 MG TAB PO PRN (19:30)
[2017-07-28] MEDS ORDERED: NICOTINE 21 MG/24 HR PATCH T-DERMAL PRN (19:30)
[2017-07-28] MEDS ORDERED: REMOVE OLD PATCH T-DERMAL PRN (20:15)
[2017-07-28] MEDS: CARVEDILOL 6.25 MG TAB PO SCH (20:22)
[2017-07-28] MEDS: INSULIN ASPART SUPPLEMENTAL SCALE SQ SCH (20:22)
[2017-07-28] MEDS ORDERED: ATORVASTATIN 80 MG TAB PO SCH (21:00)
[2017-07-29 05:56] VITALS: BP 99/49; PULSE 80; RESP 16; TEMP 97.8; O2SAT 100
[2017-07-29] MEDS: INSULIN ASPART SUPPLEMENTAL SCALE SQ SCH ×3 (08:00→16:00)
[2017-07-29 08:47] VITALS: BP 100/56; PULSE 95
[2017-07-29] MEDS ORDERED: FOLIC ACID 1 MG TAB PO SCH (09:00)
[2017-07-29] MEDS: CARVEDILOL 6.25 MG TAB PO SCH (09:00)
[2017-07-29 09:13] LABS: BICARBONATE 26.6 MEQ/L (21.0-32.0); BLOOD UREA NITROGEN 11 MG/DL (7-18); CALCIUM 9.2 MG/DL (8.5-10.1); CHLORIDE 103 MEQ/L (98-107); CREATININE 1.08 MG/DL (0.50-1.00); GLOMERULAR FILTRATION RATE 62 ML/MIN (>89); GLUCOSE,RANDOM 173 MG/DL (74-106); SODIUM (NA) 137 MEQ/L (136-145)
[2017-07-29 09:15] LABS: CHOLESTEROL 203 MG/DL (120-200); TRIGLYCERIDES 134 MG/DL (42-150)
[2017-07-29 09:17] LABS: CHOLESTEROL/ HDL RATIO 4.57 RATIO; HDL CHOLESTEROL 44.4 MG/DL (40.0-60.0); LDL CHOLESTEROL 132 MG/DL (0-99)
--- NOTE | 2017-07-29 11:39 | HHI.HP ---
Provisional Diagnosis Admission Date Jul 28, 2017 at 18:50 [place] I. 1. Depersonalization-derealization disorder Rule-out occult organic cause despite workup on medical floor [place] II. Deferred Certification of Person's Competence To Provide Express and Informed Consent I have personally examined Denise Hurley , a person being served at [facility] on, Jul 29, 2017 11:39. Express and informed consent means consent voluntarily given in writing, by a competent person, after sufficient explanation and disclosure of the subject matter involved to enable the person to make a knowing and willful decision without any element of force, fraud, deceit, duress, or other form of constraint or coercion. This person is 18 years of age or older, is not now known to be incompetent to consent to treatment with a guardian advocate, and does not have a health care surrogate or proxy currently making medical treatment decisions. I have found this person to be one of the following: [x] Competent to provide express and informed consent, as defined above, for voluntary admission to this facility and is competent to provide express and informed consent for treatment. He/she has the consistent capacity to make well reasoned, willful, and knowing decisions concerning his or her medical or mental health treatment. The person fully and consistently understands the purpose of the admission for examination/placement and is fully capable of personally exercising all rights assured under [place] Incompetent to provide express and informed consent to voluntary admission, and this is incompetent to provide express and informed consent to treatment. The person must be transferred to involuntary status and a petition for a guardian advocate filed with the Circuit Court. [] Refusing to provide express and informed consent to voluntary admission but is competent to provide express and informed consent for treatment. The person must be discharged or transferred to involuntary status. Form shall be completed within 24 hours of a person's arrival at the receiving facility and filed in the clinical record of each person: 1. Admitted on a voluntary basis 2. Permitted to provide express and informed consent to his/her own treatment 3. Allowed to transfer from involuntary to voluntary status 4. Prior to permitting a person to consent to his or her own treatment after having been previously found incompetent to consent to treatment. History of Present Illness Capacity: Has Capacity Psych Chief Complaint: "I think I need to have my meds redone." HPI Ms. Hurley is a 67 year-old female with a reported history of anxiety and depression who presents in transfer from the medical floor under a Hodgson act. The patient had presented there with altered mental status. A medical workup was undertaken for organic causes of this altered mental status including head CT and EEG. Dr. Odom saw the patient in psychiatric consultation, and I have reviewed his notes. He notes a history of mild dementia and BPAD. Reviewing the electronic medical record, I note that the patient was admitted under Dr. Anna for a short stay with discharge diagnosis of acute psychosis and history of BPAD. Patient seen and examined with nurse Salmeron, counselor Sadaf and executive director of nursing. Chart reviewed. Case discussed with nursing staff. Per nursing, patient has been no behavioral problem overnight. Case discussed with counselor who has obtained reassuring collateral from patient's family; they are reportedly comfortable with accepting the patient home today. I also discussed the case with Dr. Nuno, who had attended the patient on the medical floor, and he notes interestingly that the patient seemed more symptomatic when daughter was present. On my exam today, the patient is calm and cooperative. She seems lucid and clear-thinking, and mental status testing is actually fairly good despite reported history of dementia, see below. She complains primarily of perceptual problems that have occurred over the last year. She notes that " when I watch TV, the forms become distorted and it's scary. Colors look like psychedelic color." She describes other episodes where shapes of objects become "distorted." This perceptual issue is intermittent, not continuous. She does not describe issues in other sensory modalities. She notes that these perceptual disturbances are sometimes quite frightening for the patient and in response "I get out of control, grabby, reaching and pulling." She denies any perceptions in the absence of stimulus (i.e. she denies hallucinations). I can elicit no paranoia, no ideas of reference, no thought insertion or withdrawal or other delusional material. She denies any issues with low mood, nor can I elicit any hopelessness, worthlessness or other depressive symptoms. I can elicit no current or prior hypomanic or manic symptoms. She denies any suicidal or homicidal ideation, intent or plan on direct questioning and contracts for safety. The remainder of the psychiatric ROS is negative. The patient has no acute physical complaints. She is requesting discharge from the inpatient psychiatric unit today noting that she would like to have the requested medication changes in her chief complaint made on an outpatient basis. Past psychiatric history: The patient reports a history of anxiety and depression. She follows with Dr. Webb from psychiatry and is prescribed Xanax and amitriptyline. She is also prescribed Risperdal by Dr. Emerson and also takes Aricept. She reports that she was most recently psychiatrically hospitalized under Dr. Anna. She denies a history of suicide attempts. She denies a history of violent behavior, although she does note that she can become frantic during these perceptual episodes, see above. Family history: The patient denies any family history of serious mental illness or suicide. Chemical dependency history: The patient denies any abuse of drugs or alcohol. 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 She also has a son. She has no grandchildren. 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 She denies any history. Denies any legal history. The patient denies any access to guns herself but notes that her keeps a firearm locked and unloaded. She has never had a suicide or violence plan involving a gun. She is a [employer]. She denies a history of physical, verbal or sexual abuse or other trauma. Review of Systems Except as stated in HPI: all other systems reviewed are Neg Past Family Social History Coded Allergies: penicillin G (Unverified Allergy, Intermediate, SWELLING, 07/26/17) Past Medical History Includes HTN and DM. Patient also reports history of seizure but notes that she has been seizure free for 6 years. See EMR. Active Scripts Carvedilol (Coreg) 6.25 Mg Tab, 6.25 MG PO BID for blood pressure, #60 TAB 0 Refills Prov:Kanika Merino 07/28/17 Reported Medications Atorvastatin (Atorvastatin) 80 Mg Tab, 80 MG PO HS for Cholesterol Management, TAB 0 Refills 07/26/17 Alprazolam (Xanax) 1 Mg Tab, 1 MG PO DAILY Y for ANXIETY, TAB 0 Refills 07/26/17 Folic Acid (Folic Acid) 1 Mg Tablet, 1 MG PO DAILY 10/07/16 Ergocalciferol (Ergocalciferol) 50,000 Unit Cap, 54408 UNITS PO Q7D for Nutritional Supplement, #30 CAP 0 Refills 10/07/16 Donepezil (Donepezil) 10 Mg Tab, 10 MG PO HS for Dementia, #30 TAB 0 Refills 10/07/16 Metformin (Metformin) 1,000 Mg Tab, 1000 MG PO BIDPC for Blood Sugar Management , #60 TAB 0 Refills With meals 10/07/16 Discontinued Reported Medications Naproxen (Naproxen) 500 Mg Tab, 500 MG PO BID Y for PAIN SCALE 1 TO 10, TAB 0 Refills 07/26/17 Amitriptyline (Amitriptyline) 100 Mg Tab, 100 MG PO HS for Control Depression, TAB 0 Refills 07/26/17 Carvedilol (Coreg) 3.125 Mg Tab, 3.125 MG PO BID, #60 TAB 0 Refills 10/07/16 Risperidone (Risperdal) 1 Mg Tab, 1 MG PO BID, #30 TAB 0 Refills 10/07/16 Amitriptyline (Amitriptyline) 150 Mg Tab, 150 MG PO HS for Control Depression, # 30 TAB 0 Refills 10/07/16 Alprazolam (Xanax) 0.5 Mg Tab, 0.5 MG PO Q6H Y for ANXIETY, TAB 0 Refills 10/07/16 Discontinued Scripts Amitriptyline (Amitriptyline) 75 Mg Tab, 75 MG PO HS for Control Depression, #7 TAB 0 Refills Prov:Ric Anna MD 10/09/16 Risperidone (Risperdal) 1 Mg Tab, 1 MG PO BID for health, #14 TAB 0 Refills Prov:Ric Anna MD 10/09/16 Alprazolam (Xanax) 0.5 Mg Tab, 0.5 MG PO HS Y for MILD ANXIETY, #7 TAB 0 Refills Prov:Ric Anna MD 10/09/16 Current Medications Medications (Trade) Dose Ordered Sig/Tim Route Start Time Stop Time Status Last Admin (Lipitor) 80 mg HS PO 07/28/17 21:00 07/28/17 20:22 (Coreg) 6.25 mg BID PO 07/28/17 21:00 07/28/17 20:22 (Folate) 1 mg DAILY PO 07/29/17 09:00 07/29/17 09:00 (Tylenol) 650 mg Q4H PRN PO 07/28/17 19:30 07/29/17 09:24 (Milk Of Magnesia Liq) 30 ml DAILY PRN PO 07/28/17 19:30 (Mag-Al Plus Susp Liq) 30 ml Q6H PRN PO 07/28/17 19:30 (Habitrol 21 Mg Patch.24 Hr) 1 patch DAILY PRN T-DERMAL 07/28/17 19:30 (Romazicon Inj) 0.2 mg Q1M PRN IV PUSH 07/28/17 19:30 (Ativan) 1 mg Q4H PRN PO 07/28/17 19:30 (Ativan Inj) 1 mg Q4H PRN IV PUSH 07/28/17 19:30 (Ativan) 2 mg Q2H PRN PO 07/28/17 19:30 (Ativan Inj) 2 mg Q2H PRN IV PUSH 07/28/17 19:30 (Ativan Inj) 2 mg Q1H PRN IV PUSH 07/28/17 19:30 (Ativan Inj) 2 mg Q15M PRN IV PUSH 07/28/17 19:30 (D50w (Vial) Inj) 50 ml UNSCH PRN IV PUSH 07/28/17 19:30 (Glucagon Inj) 1 mg UNSCH PRN OTHER 07/28/17 19:30 (NovoLOG SUPPLEMENTAL SCALE) 1 ACHS SLIDING SCALE SQ 07/28/17 21:00 07/29/17 11:02 Miscellaneous Information 1 DAILY PRN T-DERMAL 07/28/17 20:15 Patient's Strengths (min. 2) Attending to basic needs. Verbally fluent. Physical Exam Physical examination was completed by hospitalist on the medical floor. On my examination today, the patient appears to be in no acute physical distress. No motor abnormalities noted. No signs of intoxication or withdrawal noted. Laboratories and vitals signs reviewed: Vital Signs Vital Signs Date Time Temp Pulse Resp B/P (MAP) Pulse Ox O2 Delivery O2 Flow Rate FiO2 07/29/17 08:47 95 100/56 (71) 07/29/17 05:56 97.8 16 100 Lab Results Item Value Date Time White Blood Count 5.8 TH/MM3 07/28/17 0640 Hemoglobin 12.8 GM/DL 07/28/17 0640 Platelet Count 319 TH/MM3 07/28/17 0640 Sodium Level 137 MEQ/L 07/29/17 0750 Potassium Level 3.6 MEQ/L 07/29/17 0750 Chloride Level 103 MEQ/L 07/29/17 0750 Carbon Dioxide Level 26.6 MEQ/L 07/29/17 0750 Blood Urea Nitrogen 11 MG/DL 07/29/17 0750 Creatinine 1.08 MG/DL H 07/29/17 0750 Random Glucose 173 MG/DL H 07/29/17 0750 Aspartate Amino Transf (AST/SGOT) 28 U/L 07/28/17 1240 Alanine Aminotransferase (ALT/SGPT) 21 U/L 07/28/17 1240 Alkaline Phosphatase 104 U/L 07/28/17 1240 Ammonia 10 MCMOL/L L 07/28/17 1240 Total Creatine Kinase 478 U/L H 07/26/17 1122 Vitamin B12 Level 455 PG/ML 07/28/17 1240 Folate GREATER THAN 20.0 NG/ML H 07/28/17 1240 Thyroid Stimulating Hormone 3rd Gen 0.565 uIU/ML 07/26/17 1122 Urine Opiates Screen NEG 07/26/17 1200 Urine Barbiturates Screen NEG 07/26/17 1200 Urine Amphetamines Screen NEG 07/26/17 1200 Urine Benzodiazepines Screen POS H 07/26/17 1200 Urine Cocaine Screen NEG 07/26/17 1200 Urine Cannabinoids Screen NEG 07/26/17 1200 Ethyl Alcohol Level LESS THAN 3 MG/DL 07/26/17 1122 Rapid Plasma Reagin Titer 1:2 H 07/26/17 1449 Rapid Plasma Reagin REACTIVE H 07/26/17 1449 RPR finding noted; ID consulted on medical floor and recommended follow up RPR outpatient. EEG on medical floor read as normal, as was head CT. Mental Status Examination Appearance: Appropriate Consciousness: Alert Orientation: x4 Motor Activity: Normal gait Speech: Unremarkable Language: Adequate Fund of Knowledge: Adequate Attention and Concentration: Adequate Mood: Appropriate Affect: Appropriate Thought Process & Associations: Intact, Logical, Linear Thought Content: Appropriate Hallucination Type: None Delusion Type: None Suicidal Ideation: No Suicidal Plan: No Suicidal Intention: No Homicidal Ideation: No Homicidal Plan: No Homicidal Intention: No Insight: Adequate Judgment: Adequate Mental Status Exam Remarks Registration 06/19 and recall 3 at 5 min. Serial 7's: 100, 73, 74, 63, 57 ( although there was a commotion on the unit when we she was making these calculations). Able to spell WORLD backward with no errors. Able to name 2 items and repeat a phrase. Able to interpret proverbs. Gives last several presidents as Gabriel, Obayad, Irving. Assessment & Plan Problem List: (1) Depersonalization-derealization syndrome ICD Codes: F48.1 - Depersonalization-derealization syndrome Assessment & Plan This is a 67-year-old female with psychiatric history as detailed above who presents in transfer from the medical floor under a Hodgson act. On my examination today, the patient reports intermittent episodes of visual perceptual disturbance. The most appropriate psychiatric diagnosis would seem to be a depersonalization-derealization disorder. These disturbances occur in isolation per patient report, and there are, for example, no reported associated symptoms of mood disorder or psychosis to suggest that the patient suffers from one of these types of illnesses presently. She does report feeling anxious and fearful at times but only as a consequence of the perceptual disturbances. Visual disturbances are certainly more characteristic of medical/neurological illness than psychiatric illness in general, and so although an extensive workup was undertaken on the medical floor, it is still possible that there is some occult medical cause that is driving her symptoms, such as an occipital-temporal epilepsy. Medication effects are also possible. I have reviewed patient's outpatient medications with her and discussed that some (such as the Xanax and amitriptyline) may be associated with perceptual problems with use or withdrawal. Presently, the patient is requesting discharge from the inpatient psychiatric unit today. She is not suicidal or homicidal. There is no evidence of significant self-care deficit at present. We have obtained reassuring collateral from family. She does not meet criteria for involuntary psychiatric hospitalization. I have recommended that she remain voluntarily for further observation and medication adjustment, but she has declined, and I have no basis to retain her over her objection. I will discharge the patient home today once she has been medically cleared by the hospitalist with outpatient psychiatric follow-up as arranged by counselor. The patient should also follow up with primary care and with neurology, and I have ordered seizure precautions on discharge. I have instructed her to continue outpatient psychotropics, with which she is well versed, except that she should hold her Xanax as this is the most likely medication culprit in my estimation. Further medication adjustments as per outpatient psychiatrist. I have counseled the patient to abstain from any substances of abuse. I have counseled patient regarding warning signs for need to return to the psychiatric emergency room as part of the general safety plan. I have provided the patient prescriptions on discharge. This note serves also as my discharge summary. Request HC Surrog/Guard Advoc?: No Lazaro Easton MD Jul 29, 2017 11:39
--- NOTE | 2017-07-29 15:12 | PD.CONS ---
HPI Service [facility] Hospitalists Consult Requested By Dr. Easton Reason for Consult medical management Primary Care Physician Unknown Diagnoses: History of Present Illness This is a 67 year old female patient with a past medical history which includes bipolar disorder, prior hospitalization for psychosis, hypertension, diabetes mellitus, chronic possible seizure disorder, possible memory loss/dementia. Review of Systems Constitutional: DENIES: Fatigue, Fever, Chills Eyes: DENIES: Blurred vision, Diplopia, Vision loss Respiratory: DENIES: Cough, Sputum production, Shortness of breath Cardiovascular: DENIES: Chest pain, Palpitations, Dyspnea on Exertion, Lower Extremity Edema Gastrointestinal: DENIES: Abdominal pain, Constipation, Diarrhea, Nausea, Vomiting Neurologic: DENIES: Abnormal gait, Headache, Localized weakness Psychiatric: DENIES: Anxiety, Confusion, Depression Past Family Social History Past Medical History 1) bipolar disorder 2) prior hospitalization for psychosis 3) hypertension 4) diabetes 5) seizure disorder? 6) memory loss, dementia? Past Surgical History 1) tubal ligation, 1984 Reported Medications Coreg (Carvedilol) 6.25 Mg Tab 6.25 Mg PO BID Atorvastatin (Atorvastatin Calcium) 80 Mg Tab 80 Mg PO HS Xanax (Alprazolam) 1 Mg Tab 1 Mg PO DAILY PRN Folic Acid 1 Mg Tablet 1 Mg PO DAILY Ergocalciferol 50,000 Unit Cap 50,000 Units PO Q7D Donepezil 10 Mg Tab 10 Mg PO HS Metformin (Metformin HCl) 1,000 Mg Tab 1,000 Mg PO BIDPC With meals Allergies: Coded Allergies: penicillin G (Unverified Allergy, Intermediate, SWELLING, 07/26/17) Family History Noncontributory Social History - - Patient lives with and daughter - No tobacco - No alcohol - No illicit street drugs Physical Exam Vital Signs Vital Signs Date Time Temp Pulse Resp B/P (MAP) Pulse Ox O2 Delivery O2 Flow Rate FiO2 07/29/17 08:47 95 100/56 (71) 07/29/17 05:56 97.8 80 16 99/49 (66) 100 07/28/17 18:45 99.5 101 18 136/67 (90) 98 Physical Exam GENERAL: This is a well-nourished, well-developed patient, in no apparent distress. SKIN: No rashes, ecchymoses or lesions. Cool and dry. HEAD: Atraumatic. Normocephalic. No temporal or scalp tenderness. EYES: Pupils equal round and reactive. Extraocular motions intact. No scleral icterus. No injection or drainage. ENT: Nose without bleeding, purulent drainage or septal hematoma. Throat without erythema, tonsillar hypertrophy or exudate. Uvula midline. Airway patent. NECK: Trachea midline. No JVD or lymphadenopathy. Supple, nontender, no meningeal signs. CARDIOVASCULAR: Regular rate and rhythm without murmurs, gallops, or rubs. RESPIRATORY: Clear to auscultation. Breath sounds equal bilaterally. No wheezes , rales, or rhonchi. GASTROINTESTINAL: Abdomen soft, non-tender, nondistended. No hepato-splenomegaly , or palpable masses. No guarding. MUSCULOSKELETAL: Extremities without clubbing, cyanosis, or edema. No joint tenderness, effusion, or edema noted. No calf tenderness. Negative Homans sign bilaterally. NEUROLOGICAL: Awake and alert. Cranial nerves II through XII intact. Motor and sensory grossly within normal limits. Five out of 5 muscle strength in all muscle groups. Normal speech. Laboratory Laboratory Tests Test 07/29/17 07:50 Blood Urea Nitrogen 11 Creatinine 1.08 Random Glucose 173 Calcium Level 9.2 Sodium Level 137 Potassium Level 3.6 Chloride Level 103 Carbon Dioxide Level 26.6 Anion Gap 7 Estimat Glomerular Filtration Rate 62 Triglycerides Level 134 Cholesterol Level 203 LDL Cholesterol 132 HDL Cholesterol 44.4 Cholesterol/HDL Ratio 4.57 Result Diagram: 07/29/17 0750 Imaging Last Impressions Head CT 07/26/17 1104 Signed Impressions: Service Date/Time: Wednesday, July 26, 2017 12:21 - CONCLUSION: Negative for an acute process Arley Gilbert MD FACR Chest X-Ray 07/26/17 1104 Signed Impressions: Service Date/Time: Wednesday, July 26, 2017 12:50 - CONCLUSION: 1. Platelike airspace disease with associated mild volume loss in the left lower lobe most consistent with atelectasis. Tank Peña MD Assessment and Plan Problem List: (1) Altered mental status ICD Codes: R41.82 - Altered mental status, unspecified Status: Acute Plan: Altered mental status acute delusion - Patient is a pleasant 67 y/o female who was brought to the ER by her family due to altered mental status. - Per ER reported that the patient was lethargic upon arrival. Per family recent medication dose change by psychiatry, Risperdal - There is no information in the patient outpatient records - Patient alert and oriented, but not good historian as to her past medical history - Patient does not appear septic - IV Ativan prn agitation - Appreciate Psychiatry consultation - They felt that the pts AMS could have been related to sudden withdrawal of benzodiazepine vs. an underlying medical condition vs. other - Psychiatry recommended continuing Risperdal 1 mg twice daily, Aricept 10 mg, Xanax 1 mg twice daily, but discontinuing Amitriptyline due to his strong anticholinergic effects, including cognitive distortion, especially in patient with dementia. - Her lactic acid was 7.8 at admission and trended down to 2.5 a few hours following admission but this has started to trend back up. Most recent lactic acid is 3.7 - Blood cultures with NGTD - Pt has been afebrile - It would be helpful to have availability of patient's outpatient records. 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 Repeat the test in 6 weeks to see if the titer becomes elevated. - DVT prophylaxis - Supportive care 07/28 Patient received Risperidone last night 2100. This AM patient noted to be acutely delusional. Patient also evaluated by Dr. Odom who has placed patient under backer act. EEG completed and normal. Patient's family request IV fluids as patient has not eaten well today. Will give IVF x 3 hours then transfer patient to inpatient psych for close monitoring and medication adjustment 07/29 received call from psych department that they have lifted rosales act are requesting medical clearance for DC Bipolar disorder - Appreciate input from Psychiatry HTN (hypertension) - Patient received Coreg to 6.25 mg last night with BP this AM - recommending DC patient on her home dose of Coreg 3.125 PO BID - also recommend patient follow up with her PCP for further BP monitoring and medication adjustment DM2 (diabetes mellitus, type 2) - Hold metformin, resume at time of DC - SSI Assessment and Plan Patient examined. Assessment and plan formulated with Kanika Merino PA-C. I agree with the above. Pt had extensive w/u during hospitalization on medical floor prior to transfer to psychiatry. From the history and unremarkable w/u, pt most likely was over medicated on her psychiatric medications prior to [place] admission. I was NOT able to obtain her outpt Psychiatric records, so NOT clear if pt had a recent medication increase or if she incorrectly took her medications. Pt to resume her aricept and metformin upon discharge. Pt to resume coreg at lower dose of 3.125mg BID. Pt to f/u with her PCP in one week. Pt to f/u with her psychiatrist in one week, Dr. Webb. Case d/w Dr. Easton (07/29/17). I am derring treatment of pt's Psychiatric disorders to the Psychiatry service. Pt is medically cleared for discharge to home. Kanika Merino Jul 29, 2017 15:12 Hal Nuno DO Jul 29, 2017 17:51
[2017-07-29 15:21] LABS: HEMOGLOBIN A1C 9.3 % (4.3-6.0)
[2017-07-29 15:22] VITALS: BP 135/72; PULSE 72
[2017-07-29] MEDS ORDERED: CARV3.125 PO (17:45)
== END 2017-07-29 18:11 | disposition home or self-care (01) | DRG 882 ==
LOC: H250 18:50
PROVIDERS: ADMIT Psychiatry & Neurology Psychiatry; ATTEND Psychiatry & Neurology Psychiatry
DX: F48.1 Depersonalization-derealization syndrome (principal); F03.90 Unspecified dementia, unspecified severity, without behavioral disturbance, psychotic disturbance, mood disturbance, and anxiety; I10 Essential (primary) hypertension; E11.9 Type 2 diabetes mellitus without complications; Z79.84 Long term (current) use of oral hypoglycemic drugs
CPT/HCPCS: 80048; 80061; 82948; 83036; J1815

== ENCOUNTER 2017-10-04 06:02 | Emergency (ER) | payer MEDICARE ==
[~2017-10-04 06:02] MED LIST changes: -AMIT100T2 PO; -CARV6.25 PO; -FOLI1TAB6 PO; -NAPR500T2 PO; -RISP1 PO; -XANA1TAB2 PO
[2017-10-04 06:13] VITALS: BP 118/57; PULSE 115; RESP 18; TEMP 99; O2SAT 98
[2017-10-04] MEDS ORDERED: VANCOMYCIN INJ 1,000 MG in SODIUM CHLOR 0.9% 250 ML INJ 250 ML IV ONE (06:15)
[2017-10-04] MEDS ORDERED: LORazepam 2 MG/ML VIAL IV PUSH ONE (06:15)
[2017-10-04] MEDS ORDERED: AZTREONAM INJ 2,000 MG in SODIUM CHLORIDE 0.9% INJ 100 ML IV STA (06:15)
[2017-10-04] MEDS ORDERED: metroNIDAZOLE 500 MG INJ 100 ML IV STA (06:15)
[2017-10-04] MEDS ORDERED: SODIUM CHLOR 0.9% 1000 ML INJ 1,000 ML IV ONE ×2 (06:15→07:30)
--- NOTE | 2017-10-04 06:32 | PD ---
HPI Chief Complaint: Altered Mental Status Time Seen by Provider: 06:06 Travel History International Travel<30 days: No (UNABLE TO OBTAIN) Contact w/Intl Traveler<30days: No (UNABLE TO OBTAIN) Traveled to known affect area: No (UNABLE TO OBTAIN) History of Present Illness HPI The patient is a 67 year old female who presents to the [facility] emergency department with a history of altered mentation that began last night around 9:30 PM. The patient became agitated according to the patient's family. The patient throughout the evening became increasingly agitated and somewhat combative, therefore please any ambulance services were called out. The patient 's daughter attempted to administer the patient's Seroquel to the patient, however they are unsure whether she swallowed it. The patient does have a history of bipolar disorder. The patient's family are unsure if the patient has been taking her Seroquel as prescribed. The patient was noted to be tachycardic by ambulance services in the 140s. The patient reportedly had a urinary tract infection that she is currently on ciprofloxacin for. She has 2 more days left in the prescription. The patient on arrival is unable or unwilling to answer questions. The patient is uncooperative with initial examination. The patient was placed in soft restraints for her and the staff safety. According to ambulance services the patient was pinching flailing her arms prior to arrival. No other history regarding recent review of systems is able to be obtained from this patient. The patient's electronic medical record is reviewed for her past medical history. [facility] Past Medical History Narrative Medical The patient's past medical history is significant for diabetes mellitus, blood sugar prior to arrival today was 180, hyperlipidemia, hypertension, bipolar disorder, acid reflux, asthma. Arthritis: No Asthma: Yes Blood Disorders: No Bipolar Disorder: Yes Anxiety: Yes Depression: Yes Cancer: No Cardiovascular Problems: Yes High Cholesterol: Yes Diabetes: Yes (BORDERLINE DIABETES TYPE 2) Patient Takes Glucophage: No (UNABLE TO OBTAIN) Diminished Hearing: No Endocrine: No Gastrointestinal Disorders: Yes GERD: Yes Glaucoma: Yes Genitourinary: Yes Hypertension: Yes Immune Disorder: No Musculoskeletal: Yes Neurologic: Yes Psychiatric: Yes (BIPOLAR ) Reproductive: No Respiratory: Yes Seizures: Yes Sickle Cell Disease: No Tetanus Vaccination: Unknown Tubal Ligation: Yes Past Surgical History Narrative Surgical The patient's past surgical history is unable to be obtained from the patient. Abdominal Surgery: No Cardiac Surgery: No Ear Surgery: No Endocrine Surgery: No Eye Surgery: No Genitourinary Surgery: No Gynecologic Surgery: Yes Oral Surgery: No Thoracic Surgery: No Other Surgery: Yes (TUBAL LIGATION 1984) Social History Alcohol Use: No Tobacco Use: No Substance Use: No Allergies-Medications (Allergen,Severity, Reaction): Coded Allergies: penicillin G (Unverified Allergy, Intermediate, SWELLING, 10/04/17) Reported Meds & Prescriptions Reported Meds & Active Scripts Active Coreg (Carvedilol) 3.125 Mg Tab 3.125 Mg PO BID Reported Seroquel (Quetiapine Fumarate) 50 Mg Tab 50 Mg PO HS Remeron (Mirtazapine) 15 Mg Tab 15 Mg PO HS Vitamin D3 (Cholecalciferol) 1,000 Unit Cap Unknown Dose DAILY Alprazolam 0.5 Mg Tab 0.5 Mg PO Q4H PRN Atorvastatin (Atorvastatin Calcium) 80 Mg Tab 80 Mg PO HS Ergocalciferol 50,000 Unit Cap 50,000 Units PO Q7D Donepezil 10 Mg Tab 10 Mg PO HS Metformin (Metformin HCl) 1,000 Mg Tab 500 Mg PO BIDPC With meals Review of Systems ROS Limitations: Altered Mental Status, Refused, Poor Historian Physical Exam Narrative General: The patient is a well-developed well-nourished female, agitated on arrival, intermittently crying out and moving all extremities and soft restraints. Head and Neck exam: Head is normocephalic atraumatic. Eyes: EOMI, pupils are equal round and reactive to light. Nose: Midline septum with pink mucous membranes Mouth: Dentition unremarkable. Moist mucus membranes. Posterior oropharynx is not erythematous. No tonsillar hypertrophy. Uvula midline. Airway patent. Neck: No palpable lymphadenopathy. No nuchal rigidity. No thyromegaly. Cardiovascular: Sinus tachycardia in the 1 teens to 120 without murmurs, gallops, or rubs. No pulse deficit to the extremities on simultaneous auscultation and palpation of her radial artery. Lungs: Clear to auscultation bilaterally. No wheezes, rhonchi, or rales. Abdomen: Soft, without tenderness to palpation in all 4 quadrants of the abdomen. No guarding, rebound, or rigidity. Normal bowel sounds are audible. No tenderness on palpation of McBurney's point. Extremities: No clubbing, cyanosis, or edema. 2+ pulses in all 4 extremities. Back: No costovertebral angle tenderness to palpation. Neurologic Exam: The patient repeatedly says never. The patient is uncooperative with formal neurologic testing, however she has no obvious facial asymmetry. She is moving all extremities equally with 5/5 strength. The patient has intact sensation over all dermatomes. Skin Exam: No rash noted. Intact skin that is warm and dry. Data Data Last Documented VS Vital Signs Date Time Temp Pulse Resp B/P (MAP) Pulse Ox O2 Delivery O2 Flow Rate FiO2 10/04/17 06:13 99.0 115 18 118/57 (77) 98 Orders Orders Electrocardiogram (10/04/17 06:15) Complete Blood Count With Diff (10/04/17 06:15) Comprehensive Metabolic Panel (10/04/17 06:15) Creatine Kinase (Cpk) (10/04/17 06:15) Ckmb (Isoenzyme) Profile (10/04/17 06:15) Troponin I (10/04/17 06:15) Prothrombin Time / Inr (Pt) (10/04/17 06:15) Act Partial Throm Time (Ptt) (10/04/17 06:15) Blood Culture (10/04/17 06:15) C-Reactive Protein (Crp) (10/04/17 06:15) Lipase (10/04/17 06:15) Urinalysis - C+S If Indicated (10/04/17 06:15) Magnesium (Mg) (10/04/17 06:15) Ammonia (10/04/17 06:15) Thyroid Stimulating Hormone (10/04/17 06:15) Chest, Single Ap (10/04/17 06:15) Ct Brain W/O Iv Contrast(Rout) (10/04/17 06:15) Iv Access Insert/Monitor (10/04/17 06:15) Ecg Monitoring (10/04/17 06:15) Oximetry (10/04/17 06:15) Drug Screen, Random Urine (10/04/17 06:15) Alcohol (Ethanol) (10/04/17 06:15) Salicylates (Aspirin) (10/04/17 06:15) Tylenol (Acetaminophen) (10/04/17 06:15) Lactic Acid Sepsis Protocol (10/04/17 06:15) Sodium Chlor 0.9% 1000 Ml Inj (Ns 1000 M (10/04/17 06:15) Lorazepam Inj (Ativan Inj) (10/04/17 06:15) Vancomycin Inj (Vancomycin Inj) (10/04/17 06:15) Aztreonam Inj (Azactam Inj) (10/04/17 06:15) Metronidazole 500 Mg Inj (Flagyl 500 Mg (10/04/17 06:15) Cath For Specimen (10/04/17 07:03) Labs Laboratory Tests Test 10/04/17 06:20 10/04/17 06:25 Salicylates Level LESS THAN 1.7 MG/DL Ammonia 18 MCMOL/L MDM Medical Decision Making Medical Screen Exam Complete: Yes Emergency Medical Condition: Yes Medical Record Reviewed: Yes Differential Diagnosis Sepsis, versus hepatic encephalopathy, versus urinary tract infection, versus intracranial abnormality, versus pneumonia, versus decompensated psychiatric disorder Narrative Course During the course of the patient's emergency department visit, the patient's history, examination, and differential diagnosis were reviewed with the patient. The patient was placed on a general pediatrician with oximetry and frequent blood pressure monitoring. The patient had IV access obtained and blood work sent for analysis. The patient had an EKG done on arrival. The patient's EKG shows a sinus tachycardia rate of 117, QRS duration 72 ms, QTC [address] segment elevation. T waves are inverted in V1, V2, nonspecific ST-T wave abnormalities are noted. Blood cultures 2 were drawn, lactic acid was sent for analysis. The patient was initially provided Ativan 1 mg IV, normal saline 1 L IV fluid bolus, broad-spectrum antibiotic was started as the patient is tachycardic with a reported history of recent urinary which could be causing sepsis, therefore the patient was started on the Azactam, vancomycin, Flagyl, given her penicillin allergy. The patient's laboratory studies were reviewed and remarkable for an ammonia level that is within normal limits any, ruling out hepatic encephalopathy as a cause of the patient's altered mentation, salicylate less than 1.7 Radiology studies were reviewed and remarkable for a chest x-ray that shows no acute abnormality. The patient's other laboratory studies, CT scan of the brain are pending at the conclusion of my shift. The patient's case will be checked out to the oncoming emergency physician to disposition the patient based on the conclusion of her workup. Diagnosis Primary Impression: Altered mental status Qualified Codes: R41.0 - Disorientation, unspecified Jael Khanna MD Oct 04, 2017 06:32
--- NOTE | 2017-10-04 06:38 | RADRPT ---
EXAM DATE: 10/04/2017 6:34 AM EDT AGE/SEX: 67 years / Female INDICATIONS: Altered mental status. CLINICAL DATA: This is the patient's initial encounter. Patient reports that signs and symptoms have been present for 1 day and indicates a pain score of Nonresponsive. MEDICAL/SURGICAL HISTORY: Non-responsive. Non-responsive. COMPARISON: [facility], CHEST SINGLE AP, 07/26/2017. . FINDINGS: A single AP view of the chest demonstrates the lungs to be symmetrically aerated without evidence of mass, infiltrate or effusion. The cardiomediastinal contours are unremarkable. Osseous structures a re intact. CONCLUSION: Negative examination. Electronically signed by: Brian Berry MD 10/04/2017 6:37 AM EDT
[2017-10-04] MEDS ORDERED: SERO50TA PO (06:47)
[2017-10-04] MEDS ORDERED: ALPR0.5T3 PO (06:47)
[2017-10-04] MEDS ORDERED: REME15TA PO (06:47)
[2017-10-04] MEDS ORDERED: CHOL10008 (06:47)
[2017-10-04 07:00] VITALS: BP 144/64; PULSE 119; RESP 18; O2SAT 99
[2017-10-04 07:22] LABS: ACETAMINOPHEN LESS THAN 2.0 MCG/ML (10.0-30.0); ALBUMIN 3.3 GM/DL (3.4-5.0); ALKALINE PHOSPHATASE 77 U/L (45-117); ALT (GPT) 29 U/L (10-53); AST (GOT) 23 U/L (15-37); BICARBONATE 19.4 MEQ/L (21.0-32.0); BLOOD UREA NITROGEN 6 MG/DL (7-18); C-REACTIVE PROTEIN 2.04 MG/DL (0.00-0.30); CALCIUM 8.5 MG/DL (8.5-10.1); CHLORIDE 104 MEQ/L (98-107); CREATININE 1.25 MG/DL (0.50-1.00); GLOMERULAR FILTRATION RATE 52 ML/MIN (>89); GLUCOSE,RANDOM 206 MG/DL (74-106); MAGNESIUM 1.6 MG/DL (1.5-2.5); SODIUM (NA) 143 MEQ/L (136-145); TOTAL BILIRUBIN ADULT 0.8 MG/DL (0.2-1.0); TOTAL PROTEIN 6.7 GM/DL (6.4-8.2); TROPONIN I LESS THAN 0.02 NG/ML (0.02-0.05)
[2017-10-04 07:25] LABS: LACTIC ACID SEPSIS PROTOCOL 5.9 mmol/L (0.4-2.0)
[2017-10-04 07:53] LABS: BACTERIA, URINE MOD /hpf; BILIRUBIN, URINE NEG (NEG); BLOOD, URINE SMALL (NEG); GLUCOSE,URINE 50 mg/dL (NEG); HYALINE CAST, URINE 3 /lpf (RARE); KETONE, URINE 20 mg/dL (NEG); MUCUS URINE FEW /lpf (OCC); NITRITE,URINE NEG (NEG); SQUAMOUS EPITHELIAL CELL URINE <1 /hpf (0-5); URINE COLOR YELLOW (YELLW/STRAW); URINE LEUKOCYTE ESTERASE SMALL (NEG)
[2017-10-04] MEDS: POTASSIUM CHLOR 20 MEQ PREMIX 100 ML IV SCH ×4 (08:36→13:30)
[2017-10-04] MEDS ORDERED: POTASSIUM CHLORIDE 20 MEQ CONTROLLED RELEASE TAB PO ONE ×2 (09:00→10:45)
[2017-10-04 09:07] LABS: AUTOMATED NEUTROPHIL # 5.9 TH/MM3 (1.8-7.7); BASOPHIL % 0.3 % (0.0-2.0); HEMATOCRIT 38.5 % (35.0-46.0); HEMOGLOBIN 12.5 GM/DL (11.6-15.3); LYMPH % 17.5 % (9.0-44.0); LYMPHOCYTE # 1.3 TH/MM3 (1.0-4.8); MEAN CELL VOLUME 84.7 FL (80.0-100.0); MEAN CORPUSCULAR HEMOGLOBIN 27.4 PG (27.0-34.0); MEAN CORPUSCULAR HGB CONC 32.4 % (32.0-36.0); MEAN PLATELET VOLUME 7.6 FL (7.0-11.0); MONO % 5.2 % (0.0-8.0); MONOCYTE # 0.4 TH/MM3 (0-0.9); PLATELET COUNT 294 TH/MM3 (150-450); RED BLOOD COUNT 4.55 MIL/MM3 (4.00-5.30); RED CELL DISTRIBUTION WIDTH 15.7 % (11.6-17.2); WHITE BLOOD COUNT 7.7 TH/MM3 (4.0-11.0)
--- NOTE | 2017-10-04 09:18 | PD ---
Physical Exam Date Seen by Provider: Oct 04, 2017 Narrative I assumed care of this patient at [address] Khanna. The patient had been brought in with the chief complaint of altered mental status. The patient has a known history of a psychiatric disorder. She has been refusing her medication. The family presumed that her symptoms were secondary to her psychiatric history. They did try to force a Seroquel but do not believe that they were successful. Her symptoms were escalating prompting the visit to the emergency department. On my arrival this morning, the patient's daughter states that the patient is totally back to baseline. The daughter further states that the patient is currently being treated for urinary tract infection. [facility] [address] [facility] GENERAL: Awake and alert and in no acute distress. SKIN: Warm and dry. Normal color and turgor. HEAD: Normocephalic/atraumatic. EYES: Pupils are equal. Extraocular movements are intact. NECK: Normal range of motion. Supple. CARDIOVASCULAR: Regular rate and rhythm. RESPIRATORY: Nonlabored respirations. Normal sats. MUSCULOSKELETAL: Atraumatic. Normal muscle tone. NEUROLOGICAL: A and O 3. Nonfocal. PSYCHIATRIC: Appropriate mood and affect. Data Data Last Documented VS Vital Signs Date Time Temp Pulse Resp B/P (MAP) Pulse Ox O2 Delivery O2 Flow Rate FiO2 10/04/17 10:05 116 18 154/92 (112) 100 Room Air 10/04/17 06:13 99.0 Orders Orders Complete Blood Count With Diff (10/04/17 06:15) Comprehensive Metabolic Panel (10/04/17 06:15) Creatine Kinase (Cpk) (10/04/17 06:15) Ckmb (Isoenzyme) Profile (10/04/17 06:15) Troponin I (10/04/17 06:15) Prothrombin Time / Inr (Pt) (10/04/17 06:15) Act Partial Throm Time (Ptt) (10/04/17 06:15) Blood Culture (10/04/17 06:15) C-Reactive Protein (Crp) (10/04/17 06:15) Lipase (10/04/17 06:15) Urinalysis - C+S If Indicated (10/04/17 06:15) Magnesium (Mg) (10/04/17 06:15) Ammonia (10/04/17 06:15) Thyroid Stimulating Hormone (10/04/17 06:15) Chest, Single Ap (10/04/17 06:15) Iv Access Insert/Monitor (10/04/17 06:15) Ecg Monitoring (10/04/17 06:15) Oximetry (10/04/17 06:15) Drug Screen, Random Urine (10/04/17 06:15) Alcohol (Ethanol) (10/04/17 06:15) Salicylates (Aspirin) (10/04/17 06:15) Tylenol (Acetaminophen) (10/04/17 06:15) Lactic Acid Sepsis Protocol (10/04/17 06:15) Sodium Chlor 0.9% 1000 Ml Inj (Ns 1000 M (10/04/17 06:15) Lorazepam Inj (Ativan Inj) (10/04/17 06:15) Vancomycin Inj (Vancomycin Inj) (10/04/17 06:15) Aztreonam Inj (Azactam Inj) (10/04/17 06:15) Metronidazole 500 Mg Inj (Flagyl 500 Mg (10/04/17 06:15) Cath For Specimen (10/04/17 07:03) CKMB (10/04/17 06:20) CKMB% (10/04/17 06:20) Sodium Chlor 0.9% 1000 Ml Inj (Ns 1000 M (10/04/17 07:30) Potassium Chlor 20 Meq Premix (Kcl 20 Me (10/04/17 07:30) Urine Culture (10/04/17 07:31) Electrocardiogram (10/04/17 ) Potassium Chloride (Kcl) (10/04/17 09:00) Potassium Chloride (Kcl) (10/04/17 10:45) Labs Laboratory Tests Test 10/04/17 06:20 10/04/17 06:25 10/04/17 07:31 10/04/17 08:51 Salicylates Level LESS THAN 1.7 MG/DL Ammonia 18 MCMOL/L Urine Color YELLOW Urine Turbidity HAZY Urine pH 5.0 Urine Specific [place] 1.010 Urine Protein NEG mg/dL Urine Glucose (UA) 50 mg/dL Urine Ketones 20 mg/dL Urine Occult Blood SMALL Urine Nitrite NEG Urine Bilirubin NEG Urine Urobilinogen LESS THAN 2 mg/dL Urine Leukocyte Esterase SMALL Urine RBC 5 /hpf Urine WBC 2 /hpf Urine Squamous Epithelial Cells <1 /hpf Urine Bacteria MOD /hpf Urine Hyaline Casts 3 /lpf Urine Mucus FEW /lpf Microscopic Urinalysis Comment CULTURE INDICATED Urine Opiates Screen NEG Urine Barbiturates Screen NEG Urine Amphetamines Screen NEG Urine Benzodiazepines Screen POS Urine Cocaine Screen NEG Urine Cannabinoids Screen NEG White Blood Count 7.7 TH/MM3 Red Blood Count 4.55 MIL/MM3 Hemoglobin 12.5 GM/DL Hematocrit 38.5 % Mean Corpuscular Volume 84.7 FL Mean Corpuscular Hemoglobin 27.4 PG Mean Corpuscular Hemoglobin Concent 32.4 % Red Cell Distribution Width 15.7 % Platelet Count 294 TH/MM3 Mean Platelet Volume 7.6 FL Neutrophils (%) (Auto) 77.0 % Lymphocytes (%) (Auto) 17.5 % Monocytes (%) (Auto) 5.2 % Eosinophils (%) (Auto) 0.0 % Basophils (%) (Auto) 0.3 % Neutrophils # (Auto) 5.9 TH/MM3 Lymphocytes # (Auto) 1.3 TH/MM3 Monocytes # (Auto) 0.4 TH/MM3 Eosinophils # (Auto) 0.0 TH/MM3 Basophils # (Auto) 0.0 TH/MM3 CBC Comment DIFF FINAL Differential Comment Prothrombin Time 11.6 SEC Prothromb Time International Ratio 1.1 RATIO Activated Partial Thromboplast Time 20.1 SEC Blood Urea Nitrogen 6 MG/DL Creatinine 1.25 MG/DL Random Glucose 206 MG/DL Total Protein 6.7 GM/DL Albumin 3.3 GM/DL Calcium Level 8.5 MG/DL Magnesium Level 1.6 MG/DL Alkaline Phosphatase 77 U/L Aspartate Amino Transf (AST/SGOT) 23 U/L Alanine Aminotransferase (ALT/SGPT) 29 U/L Total Bilirubin 0.8 MG/DL Sodium Level 143 MEQ/L Potassium Level 2.4 MEQ/L Chloride Level 104 MEQ/L Carbon Dioxide Level 19.4 MEQ/L Anion Gap 20 MEQ/L Estimat Glomerular Filtration Rate 52 ML/MIN Lactic Acid Level 5.9 mmol/L Total Creatine Kinase 105 U/L Creatine Kinase MB 0.9 NG/ML Troponin I LESS THAN 0.02 NG/ML C-Reactive Protein 2.04 MG/DL Lipase 71 U/L Thyroid Stimulating Hormone 3rd Gen 3.660 uIU/ML Acetaminophen Level LESS THAN 2.0 MCG/ML Ethyl Alcohol Level LESS THAN 3 MG/DL Test 10/04/17 12:20 Lactic Acid Level 1.6 mmol/L MDM Supervised Visit with VENKATA: No Narrative Course Vital Signs Date Time Temp Pulse Resp B/P (MAP) Pulse Ox O2 Delivery O2 Flow Rate FiO2 10/04/17 07:00 119 18 144/64 (90) 99 Room Air 10/04/17 06:13 99.0 115 18 118/57 (77) 98 CBC & BMP Diagram 10/04/17 08:51 Total Protein 6.7, Albumin 3.3 L, Calcium Level 8.5, Magnesium Level 1.6, Alkaline Phosphatase 77, Aspartate Amino Transf (AST/SGOT) 23, Alanine Aminotransferase (ALT/SGPT) 29, Total Bilirubin 0.8 I ordered IV potassium because the report was that she had an altered mental status. However, she is now back to baseline. Therefore, I will attempt to replace her potassium orally. Lactic acid 5.9. Fluids with a repeat lactic acid level have been ordered. Troponin less than 0.02. Tox screen is positive for benzodiazepines. UA shows small leukocyte esterase, 2 white blood cells and moderate bacteria. Unfortunately, she does not have a recent UA in the computer. Therefore, I am unable to tell whether or not she has a urinary tract infection which is resolving or if she has a urinary tract infection which is not responding to Cipro. Repeat lactic acid is 1.6. This patient is now stable for discharge to home. Critical Care Narrative Aggregate critical care time was minutes. Time to perform other separately billable procedures was not included in the critical care time. My time did not include minutes spent treating any other patients simultaneously or on activities that did not directly contribute to the patient's treatment. The services I provided to this patient were to treat and/or prevent clinically significant deterioration due to altered mental status, lactic acidosis I provided critical care services requiring my management, as noted below: Chart data review, documentation time, medication orders and management, vital sign assessments/reviewing monitor data, ordering and reviewing lab tests, ordering and interpreting/reviewing x-rays and diagnostic studies, care of the patient and discussion of the patient with the admitting physicians Diagnosis Primary Impression: Altered mental status Qualified Codes: R41.0 - Disorientation, unspecified Additional Impressions: Lactic acidosis Hypokalemia Patient Instructions: General Instructions, Hypokalemia (DC) Additional Instruction: See your doctor in a couple of days to have her potassium rechecked. Med/Other Pt SpecificInfo: Prescription(s) given Disposition: 01 DISCHARGE HOME Condition: Stable Yina Bowden MD Oct 04, 2017 09:18
[2017-10-04 09:26] LABS: INTERNATIONAL NORMALIZED RATIO 1.1 RATIO; PROTHROMBIN TIME - PATIENT 11.6 SEC (9.8-11.6)
[2017-10-04 10:05] VITALS: BP 154/92; PULSE 116; RESP 18; O2SAT 100
--- NOTE | 2017-10-04 22:58 | EKG ---
Date Performed: 10/04/2017 Time Performed: 06:09:11 PTAGE: 67 years EKG: SINUS TACHYCARDIA POSSIBLE RIGHT ATRIAL ENLARGEMENT POSSIBLE LEFT ATRIAL ENLARGEMENT POSSIB LE RIGHT VENTRICULAR CONDUCTION DELAY NONSPECIFIC ST & T-WAVE ABNORMALITY ABNORMAL RHYTHM ECG PREVIOUS TRACING : 07/26/2017 11.45 DOCTOR: Shelley Walker Interpretating Date/Time 10/04/2017 22:53:25
== END 2017-10-04 13:54 | disposition home or self-care (01) ==
LOC: NEPC 06:02
DX: R41.0 Disorientation, unspecified (principal); E87.2 Acidosis; E87.6 Hypokalemia; R00.0 Tachycardia, unspecified; R94.31 Abnormal electrocardiogram [ECG] [EKG]; B37.89 Other sites of candidiasis; B95.4 Other streptococcus as the cause of diseases classified elsewhere; B95.7 Other staphylococcus as the cause of diseases classified elsewhere; E11.9 Type 2 diabetes mellitus without complications; I10 Essential (primary) hypertension; K21.9 Gastro-esophageal reflux disease without esophagitis; E78.5 Hyperlipidemia, unspecified; F31.9 Bipolar disorder, unspecified; Z79.899 Other long term (current) drug therapy; Z79.84 Long term (current) use of oral hypoglycemic drugs; Z87.09 Personal history of other diseases of the respiratory system; Z87.19 Personal history of other diseases of the digestive system; Z87.39 Personal history of other diseases of the musculoskeletal system and connective tissue; Z87.448 Personal history of other diseases of urinary system; Z86.69 Personal history of other diseases of the nervous system and sense organs
CPT/HCPCS: 71045; 80053; 80307; 81001; 82140; 82550; 82552; 83605; 83690; 83735; 84443; 84484; 85025; 85610; 85730; 86140; 86403; 87040; 87077; 87086; 87186; 87205; 93005; 96365; 96367; 96368; 96375; 99285; J2060; J3370; J3480; J7030; J7050